=== PATIENT | male | born 1955 | race Caucasian/White ===

== ENCOUNTER 2017-01-22 16:18 | Emergency (ER) | payer OTHER ==
[~2017-01-22] VITALS: Ht 175.3 cm; Wt 82.6 kg
--- NOTE | ~2017-01-22 | EKG ---
[address] [address] ELECTROCARDIOGRAM REPORT Name: CHAD ROBBINS [id number] Admission: 01/22/17 Attend Phys: Discharge: 01/22/17 Date of : 59 Report #: [id number] THIS REPORT FOR: //name// [facility] ED Test Date: 2017-01-22 Test Time: 16:26:56 Pat Name: CHAD ROBBINS Department: Room: Gender: M Dispatcher Radio: MZOOK : 1955 Requested By: Annalisa Acuna Order Number: [id number] MD: Ayaan Costello Measurements Intervals [place] Rate: 80 P: 58 MT: 172 QRS: -41 QRSD: 159 T: 77 QT: 458 QTc: 529 Interpretive Statements Sinus rhythm Left bundle branch block No previous ECG available for comparison Electronically Signed On 01-24-2017 13:21:30 CDT by Ayaan Costello [email or web address] <ELECTRONICALLY SIGNED> By: Ayaan Costello MD 01/24/17 1321 1626 1626 Ayaan Costello MD /TIARA
[~2017-01-22 16:18] MED LIST: ACETAMINOPHEN-1 EAC1 PO; ACETAMINOPHEN325 M1 PO; ADULT LOW DOSE81 MG PO; ALTACE5 M1 PO; ASPIR 8181 MG PO; ASPIRIN81 M2 PO; ATORVASTATIN CA40 MG PO; CEFTIN500 MG PO; CLEOCIN HCL300 MG PO; DICLOFENAC SODI75 M1 PO; EFFIENT10 MG PO; GLUCOPHAGE500 MG PO; HYDROCODONE-APA1 TA1 PO; LANTUS SUBQ; LEVEMIR SUBQ; LISINOPRIL20 MG PO; NEURONTIN 300300 M1 PO; NOVOLOG100 UNIT/1 SUBQ; SIMVASTATIN40 MG PO; TOPROL XL100 MG PO; TOPROL XL25 MG PO; TOPROL XL50 MG PO; VOLTAREN75 MG PO
[2017-01-22 17:23] LABS: BASOPHILS 0.5 % (0.0-2.0); EOSINOPHILS 0.7 % (0.0-3.0); HEMATOCRIT 40.4 % (42.0-52.0); HEMOGLOBIN 13.7 gm/dL (14.0-18.0); LYMPHOCYTES 33.6 % (24.0-44.0); MCH 27.8 pg (26.0-34.0); MCHC 33.9 g/dL (28.0-37.0); MCV 82.1 fL (80.0-100.0); MONOCYTES 6.1 % (1.0-8.0); PLATELET COUNT 192 thou/uL (150-400); POLYS 59.1 % (36.0-66.0); RBC 4.92 mil/uL (4.50-6.00); RDW 14.1 % (10.5-14.5)
[2017-01-22 17:28] LABS: MANUAL DIFF NO
[2017-01-22 17:31] LABS: ANION GAP 8 mmol/L (7-16); BUN 18 mg/dL (7-18); CALCIUM 9.4 mg/dL (8.5-10.1); CHLORIDE 102 mmol/L (98-107); CO2 27 mmol/L (21-32); CREATININE 1.3 mg/dL (0.6-1.3); GLUCOSE 435 mg/dL (70-99); POTASSIUM 4.7 mmol/L (3.5-5.1); SODIUM 137 mmol/L (136-145)
[2017-01-22 17:38] LABS: INR 1.1; PROTIME 10.9 Seconds (9.3-11.4)
[2017-01-22 17:44] LABS: NT-PRO BRAIN NAT PEPTIDE 302 pg/mL (<300); TROPONIN-I < 0.04 ng/mL (<0.04-0.07)
== END 2017-01-22 20:15 | disposition home or self-care (01) ==
LOC: ER 16:18
PROVIDERS: Emergency Medicine
DX: R07.89 Other chest pain (principal); F10.99 Alcohol use, unspecified with unspecified alcohol-induced disorder; I10 Essential (primary) hypertension; E11.9 Type 2 diabetes mellitus without complications; E78.00 Pure hypercholesterolemia, unspecified; Z79.4 Long term (current) use of insulin; Z88.0 Allergy status to penicillin; Z95.5 Presence of coronary angioplasty implant and graft; Z86.73 Personal history of transient ischemic attack (TIA), and cerebral infarction without residual deficits

== ENCOUNTER 2017-01-24 06:27 | Inpatient (IN) | payer OTHER ==
[2017-01-21 11:22] LABS: HEMATOCRIT 41.5 % (42.0-52.0); HEMOGLOBIN 14.3 gm/dL (14.0-18.0); MCHC 34.5 g/dL (28.0-37.0); MCV 81.1 fL (80.0-100.0); RBC 5.11 mil/uL (4.50-6.00)
[2017-01-21 11:26] LABS: URINE BILIRUBIN NEGATIVE (Negative); URINE BLOOD NEGATIVE (Negative); URINE COLOR YELLOW; URINE GLUCOSE-RANDOM* 3+ (Negative); URINE KETONES 1+ (Negative); URINE LEUKOCYTES-REFLEX NEGATIVE (Negative); URINE PROTEIN (DIPSTICK) NEGATIVE (Negative); URINE UROBILINOGEN 0.2 E.U./dl (0.2-1.0)
[2017-01-21 11:29] LABS: CALCIUM 9.5 mg/dL (8.5-10.1); CREATININE 1.4 mg/dL (0.6-1.3); POTASSIUM 4.2 mmol/L (3.5-5.1)
[2017-01-21 11:41] LABS: APTT 25.7 Seconds (24.5-32.8); INR 1.1; PROTIME 11.1 Seconds (9.3-11.4)
[~2017-01-24] VITALS: Ht 175.3 cm; Wt 89.5 kg
--- NOTE | ~2017-01-24 | EKG ---
[address] [address] ELECTROCARDIOGRAM REPORT Name: CHAD ROBBINS Room #: [facility]#: [id number] Admission: Attend Phys: Haris Graham MD Discharge: Date of : 59 Report #: [id number] THIS REPORT FOR: //name// [facility] Test Date: 2017-01-21 Test Time: 10:42:41 Pat Name: CHAD ROBBINS Department: Room: Gender: Consultant: Fernando CABA : 1955 Requested By: Haris Graham Order Number: [id number] MD: Ayaan Costello Measurements Intervals [place] Rate: 77 P: 51 NV: 174 QRS: -35 QRSD: 162 T: 87 QT: 460 QTc: 521 Interpretive Statements Sinus rhythm Probable left atrial enlargement Left bundle branch block No previous ECG available for comparison Electronically Signed On 01-24-2017 12:56:53 CDT by Ayaan Costello [email or web address] <ELECTRONICALLY SIGNED> By: Ayaan Costello MD 01/24/17 1256 2 41 Ayaan Costello MD /TIARA
--- NOTE | ~2017-01-24 | EKG ---
[address] [place] [address] ELECTROCARDIOGRAM REPORT Name: GAYSKIPCHAD Room #: 213- ADM IN M.R.#: [id number] Admission: 02/07/17 Attend Phys: Haris Graham MD Discharge: Date of : 59 Report #: [id number] THIS REPORT FOR: //name// [facility] Test Date: 2017-02-15 Test Time: 08:19:14 Pat Name: CHAD ROBBINS Department: Room: 213 Gender: M Shelter Case Manager: james : 1955 Requested By: Raudel Doherty Order Number: [id number] MD: Josue Christian Measurements Intervals [place] Rate: 75 P: 39 VT: 167 QRS: -14 QRSD: 134 T: 139 QT: 439 QTc: 491 Interpretive Statements Sinus rhythm Left bundle branch block Compared to ECG 02/08/2017 07:33:26 No significant changes Electronically Signed On 02-16-2017 15:00:57 CDT by Josue Christian [email or web address] <ELECTRONICALLY SIGNED> By: Josue Christian MD, [facility] 02/16/17 1500 8 8 Josue Christian MD, [facility] /EPI
--- NOTE | ~2017-01-24 | HC ---
[facility] [place] [address] CONSULTATION Name: CHAD ROBBINS Room #: 242-P [facility] IN M.R.#: [id number] Admission: 02/07/17 Attend Phys: Haris Graham MD Discharge: Date of : 59 Report #: [id number] THIS REPORT FOR: //name// CC: Haris Blood DATE OF SERVICE: 02/09/2017 Critical care renal consult dated 02/09/2017. IDENTIFICATION: This Intensive Care Unit patient is seen post coronary artery bypass surgery and aortic valve replacement in a critical state in the Intensive Care Unit. HISTORY OF PRESENT ILLNESS: This 61-year-old male has known ischemic cardiomyopathy, status post remote percutaneous intervention and prior AICD for cardiac arrest. He underwent an electively aortic valve replacement with a bioprosthetic aortic valve and a 2-vessel coronary artery bypass surgery on 02/07/2017. He initially did well intraoperatively and was successfully extubated; however, he subsequently developed respiratory distress and a code was called. He was reintubated and is seen in the Intensive Care Unit on dopamine infusion with oligo-anuria. His potassium is rising and his creatinine is rising as well. PAST MEDICAL HISTORY: Remarkable for myocardial infarction in 12/2012 with out of hospital cardiac arrest at that time. He underwent PCI with a drug eluting stent at that time. He has known diabetes mellitus, dyslipidemia, and hypertension. MEDICATIONS ON ADMISSION: Include Humalog, metoprolol, famotidine, atorvastatin, aspirin, amiodarone. PERSONAL AND SOCIAL HISTORY: The patient is and lives with his . He does not smoke or consume alcohol. There is no history of substance abuse. FAMILY HISTORY AND REVIEW OF SYSTEMS: Not obtainable from this intubated patient. PHYSICAL EXAMINATION: GENERAL: Reveals a well-developed, well-nourished male appearing his stated age, in no acute distress. VITAL SIGNS: Blood pressure 129/56, pulse 87, temperature 98.1. SKIN: Warm and dry. There is no gross clubbing, cyanosis, edema or adenopathy. HEENT: The head is normocephalic and atraumatic. There is an endotracheal tube in place. There are several neck lines in place. The patient is responsive. His eyes track appropriately. He seems to understand simple commands. [facility] [address] [place] [address] CONSULTATION Name: CHAD ROBBINS Room #: 242-P [facility] IN M.R.#: [id number] Admission: 02/07/17 Attend Phys: Haris Graham MD Discharge: Date of : 59 Report #: [id number] EXTREMITIES: Warm and well perfused at this time. NECK: Supple. LUNGS: Rivera reveal scattered rhonchi bilaterally. CARDIOVASCULAR: Reveals a regular rate and rhythm without rub. ABDOMEN: Soft and nontender. There are chest tubes in place. NEUROLOGIC: Reveals the patient to be responsive and tracking. He is moving all extremities symmetrically without evidence of focal neurologic deficit. LABORATORY STUDIES: Available at the time of consultation include sodium 140, potassium 6.5, chloride 106, CO2 14, BUN 43, creatinine 3.6, glucose 334, calcium 7.4, magnesium 2.2, albumin 3.4. White blood cell count 13,900, hemoglobin 9.2, hematocrit 27.1, platelet count 109,000. Urinalysis reveals clear yellow urine, specific gravity 1.025, pH 5, 1+ protein, 1+ glucose, 3+ blood. ASSESSMENT: 1. Acute kidney injury following cardiac arrest and reintubation following prior coronary artery bypass surgery and aortic valve repair. The patient is relatively hemodynamically stable at this time and the exact details of his episode of the night prior to consultation are not well described. He has been treated emergently for hyperkalemia and repeat laboratory studies are pending at this time. He has clearly sustained a significant renal insult and may well require renal replacement therapy. I have discussed his current medical situation with his including his possible need for dialysis/CRRT therapy. We will follow serial laboratory studies, I and O and daily weights. 2. Status post coronary artery bypass surgery with aortic valve repair. 3. Diabetes mellitus, presently poorly controlled, will institute insulin drip. 4. Metabolic acidosis. 5. History of sudden with automatic implantable cardioverter defibrillator in place. PLAN: We will follow serial laboratory studies, I and O and daily weights. I will keep the patient's informed of his progress. Please see orders. Critical care time 45 minutes. <ELECTRONICALLY SIGNED> By: Dano Briones MD 02/11/17 1721 0550 1053 Dano Briones MD /nt
--- NOTE | ~2017-01-24 | HC ---
[facility] [place] [address] CONSULTATION Name: CHAD ROBBINS Room #: 242-P ADM IN M.R.#: [id number] Admission: 02/07/17 Attend Phys: Haris Graham MD Discharge: Date of : 59 Report #: [id number] THIS REPORT FOR: //name// CC: Haris Blood [facility] REQUESTING PHYSICIAN: Haris Graham M.D. REASON FOR CONSULTATION: Medical management post-CABG. HISTORY OF PRESENT ILLNESS: The patient is a 61-year-old with extensive past medical history including and not limited to cardiac arrest, status post AICD. He is known to have diabetes mellitus, hypertension and chronic kidney disease. All of his medical problems are related to his diabetes mellitus and hypertension. He had an arrest with cardioversion back in 2012 and underwent cardiac catheterizations with an implantable defibrillator. He was operated on yesterday by Dr. Graham and had what was described as aortic valve replacement with CABG times 2. I was asked to manage his medical issues postoperatively. He was evaluated in the intensive care unit this morning and has chest discomfort, as expected related to his surgery. PAST MEDICAL HISTORY: 1. Diabetes mellitus. 2. Hypertension. 3. Status post cardiac arrest. 4. Coronary artery disease. PAST SURGICAL HISTORY: 1. AICD. 2. Arthroscopic knee surgery. ALLERGIES: PENICILLIN and SULFA. FAMILY HISTORY: His mother had coronary artery disease, status post CABG. SOCIAL HISTORY: No drug or alcohol abuse. He used to work for [employer]. HOME MEDICATIONS: 1. Atorvastatin. 2. Metoprolol. 3. Aspirin. 4. Insulin. REVIEW OF SYSTEMS: [facility] [address] [place] [address] CONSULTATION Name: CHAD ROBBINS Room #: 242-P [facility] IN .R.#: [id number] Admission: 02/07/17 Attend Phys: Haris Graham MD Discharge: Date of : 59 Report #: [id number] GENERAL: No fever or chills. CARDIOVASCULAR: As expected, chest pain and shortness of breath. PULMONARY: Shortness of breath. No hemoptysis. GASTROINTESTINAL: No nausea or vomiting. GENITOURINARY: No frequency, no urgency. PHYSICAL EXAMINATION: GENERAL: The patient is alert and oriented. VITAL SIGNS: Blood pressure is 127/57, pulse rate is 82 and temperature is 37. HEAD AND NECK: Right IJ Cordis line. CHEST: Decreased air entry bilaterally with chest tubes. CARDIOVASCULAR: No rub detected. ABDOMEN: Soft, nontender. LOWER EXTREMITIES: No edema. LABORATORY DATA: Laboratory values reviewed. Creatinine is 1.6. Blood sugar is mildly elevated. As expected, white blood cell count is mildly elevated. INR is 1.4. CHEST X-RAY: Reviewed with postoperative changes. ASSESSMENT, IMPRESSION AND PLAN: 1. Status post coronary artery bypass graft. 2. Hypertension. 3. Diabetes mellitus. 4. Chronic kidney disease. 5. Status post cardiac arrest in 2013 with automated implantable cardioverter defibrillator. 6. He seems to be making very good progress postoperatively. 7. He is currently maintained on appropriate post-cardiac surgical medications, including Cardene, insulin drip. 8. Blood pressure seems to be under well control. 9. He is making appropriate amount of urine. His creatinine is slightly rising; however, looking back, he does have chronic kidney disease with a baseline creatinine of anywhere from 1.4 to 1.6. 10. Continue routine post-surgical care. 11. We will discuss with the surgical team when to titrate off the IV drips. 12. Repeat labs and x-rays in the morning. 13. Once able to take p.o., we will resume his atorvastatin. He will also need to be on his full cardiac medications including metoprolol and aspirin. <ELECTRONICALLY SIGNED> By: Rae Moore MD 02/12/17 0904 0655 1216 Rae Moore MD /nt
--- NOTE | ~2017-01-24 | EKG ---
[address] [place] [address] ELECTROCARDIOGRAM REPORT Name: ROSENDOCHAD Room #: 242-P ADM IN M.R.#: [id number] Admission: 02/07/17 Attend Phys: Haris Graham MD Discharge: Date of : 59 Report #: [id number] THIS REPORT FOR: //name// [facility] Test Date: 2017-02-07 Test Time: 18:27:03 Pat Name: CHAD ROBBINS Department: Room: [facility] Gender: M Public Service Officer: Tita KWON : 1955 Requested By: Dannie Hunter Order Number: [id number] MD: Abundio Lamb Measurements Intervals [place] Rate: 102 P: 60 WV: 148 QRS: -51 QRSD: 149 T: 150 QT: 401 QTc: 523 Interpretive Statements Sinus tachycardia Left bundle branch block Compared to ECG 01/22/2017 16:26:56 Sinus rhythm no longer present Electronically Signed On 02-08-2017 11:04:44 CDT by Abundio Lamb [email or web address] <ELECTRONICALLY SIGNED> By: Abundio Lamb MD 02/08/17 1104 26 26 Abundio Lamb MD /TIARA
--- NOTE | ~2017-01-24 | EKG ---
[address] [place] [address] ELECTROCARDIOGRAM REPORT Name: ROSENDOCHAD E Room #: 242- ADM IN M.R.#: [id number] Admission: 02/07/17 Attend Phys: Haris Graham MD Discharge: Date of : 59 Report #: [id number] THIS REPORT FOR: //name// [facility] Test Date: 2017-02-08 Test Time: 07:33:26 Pat Name: CHAD ROBBINS Department: Room: 242 Gender: M Airline Manager: james : 1955 Requested By: Dannie Hunter Order Number: [id number] MD: Abundio Lamb Measurements Intervals [place] Rate: 67 P: 42 MS: 186 QRS: -17 QRSD: 153 T: 123 QT: 536 QTc: 566 Interpretive Statements Sinus rhythm Left bundle branch block Compared to ECG 01/22/2017 16:26:56 No significant changes Electronically Signed On 02-08-2017 11:05:51 CDT by Abundio Lamb [email or web address] <ELECTRONICALLY SIGNED> By: Abundio Lamb MD 02/08/17 1105 0733 2 MD SAMANTA Ochoa
--- NOTE | ~2017-01-24 | 2DMMODE ---
[facility] [place] [address] 2 D/M-MODE ECHOCARDIOGRAM Name: CHAD ROBBINS Room #: 242-P ADM IN M.R.#: [id number] Admission: 02/07/17 Attend Phys: Haris Graham MD Discharge: Date of : 59 Date of Service: 02/12/17 1650 Report #: [id number] THIS REPORT FOR: //name// APPROVED REPORT Study performed: 02/12/2017 13:29:36 EXAM: Comprehensive 2D, Doppler, and color-flow Echocardiogram Patient Location: Bedside Room #: 242 Blood Pressure: 140/58 mmHg HR: 93 bpm Other Information Study Quality: Adequate Indications Aortic Valve Disease Diabetes Hypertension/HDD Aortic Valve AoV Peak Fermin.: 2.06 m/s AO Peak Gr.: 18.35 mmHg LV Max P.88 mmHg LV Max: 0.98 m/s Pulmonary Valve PV Peak Fermin.: 0.99 m/s PV Peak Gr.: 3.89 mmHg Left Ventricle The left ventricle is normal size. Mild concentric left ventricular hypertrophy. Left ventricular systolic function is hyperdynamic. LVEF is 65-70%. Diastolic function cannot be accurately assessed. Right Ventricle The right ventricle is normal size. The right ventricular systolic function is normal. ICD lead noted Atria The left atrium size is normal. The right atrium size is normal. [facility] [address] [place] [address] 2 D/M-MODE ECHOCARDIOGRAM Name: CHAD ROBBINS Room #: 242-P ADM IN M.R.#: [id number] Admission: 02/07/17 Attend Phys: Haris Graham MD Discharge: Date of : 59 Date of Service: 02/12/171649 Report #: [id number] Aortic Valve The aortic valve is not well visualized. There is a 21 mm Wolf-Brown bioprosthetic aortic valve prosthesis. The prosthetic aortic valve appears to have normal function Trace aortic regurgitation. Mitral Valve The mitral valve is normal in structure. Trace mitral regurgitation. No evidence of mitral valve stenosis. Tricuspid Valve The tricuspid valve is normal in structure. Trace tricuspid regurgitation. Pulmonic Valve Pulmonic valve is not well visualized. There is no pulmonic valvular regurgitation. Great Vessels The aortic root appears normal in size. The inferior vena cava is not well visualized. Pericardium There is no pericardial effusion. <Conclusion> Mild concentric left ventricular hypertrophy. LVEF is 65-70%. There is a 21 mm Wolf-Brown bioprosthetic aortic valve prosthesis. The prosthetic aortic valve appears to have normal function <ELECTRONICALLY SIGNED> By: Raudel Doherty MD, FACC 02/12/171649 49 1650 Raudel Doherty MD, FACC /INF
--- NOTE | ~2017-01-24 | O ---
[facility] [place] [address] OPERATIVE REPORT Name: CHAD ROBBINS Room #: 242-P ADM IN M.R.#: [id number] Admission: 02/07/17 Attend Phys: Haris Graham MD Discharge: Date of : 59 Report #: [id number] THIS REPORT FOR: //name// CC: Haris Blood DATE OF SERVICE: 02/07/2017 PREOPERATIVE DIAGNOSES: Aortic valve stenosis and coronary artery disease. POSTOPERATIVE DIAGNOSES: Aortic valve stenosis and coronary artery disease. OPERATION: Aortic valve replacement with 21 mm bioprosthesis and coronary artery bypass times 2 including saphenous vein to diagonal and marginal arteries and endoscopic harvest, left greater saphenous vein. SURGEON: Haris Graham MD PRINTING AGENT: Dale. ANESTHESIA: General. INDICATIONS: The patient is a 61-year-old with important aortic valve stenosis and coronary artery disease. Cardiac catheterization demonstrated a 70% first marginal lesion and a 50% ostial lesion in a bifurcating diagonal. Cardiac echo revealed aortic valve area estimated to be a 0.7 cm2 area, main gradient of 32 mmHg. The patient has history of sudden and has an implantable defibrillator. The patient continues to work manager multimedia. FINDINGS AND TECHNIQUE: After general anesthesia was established, saphenous vein was harvested using an endoscopic approach and prepared for use as a conduit. Exposure was obtained through median sternotomy. Pericardial well was made. Cannulation sutures were placed. Heparin was given. Aorta was cannulated. Right atrium was cannulated. Cardioplegia needle was positioned in the aortic root. Retrograde cardioplegic catheter was placed in the coronary sinus. Cardiopulmonary bypass was established. The aorta was cross clamped. Antegrade and retrograde cardioplegia were given. Ice was poured in the pericardial well. The heart was stopped. During electromechanical arrest, the distal anastomosis were performed and end-to-side anastomosis was made between vein and the marginal artery. This was an intramyocardial vessel that measured approximately 1.7 mm. Cold cardioplegia was given. Same segment of vein was sewn in [id number]-[id number] fashion to the diagonal artery. This was a 1.3 mm vessel. Cold cardioplegia was given. [facility] [address] [place] [address] OPERATIVE REPORT Name: CHAD ROBBINS Room #: 242-P [facility] IN M.R.#: [id number] Admission: 02/07/17 Attend Phys: Haris Graham MD Discharge: Date of : 59 Report #: [id number] aortotomy was made. The aortic valve was bicuspid and was highly calcified. Cardioplegia was given every 15 minutes through the retrograde cannula and down the vein graft and through the ostium of the right coronary. The cusp of the aortic valve leaflets were excised. The annulus was decalcified. The cavity of the ventricle was irrigated to remove any loose debris. Interrupted Ethibond sutures were placed sequentially through the [place] annulus and then through the sewing ring of a 21 mm. A Wolf-Brown bioprosthesis was chosen for patient an annulus size. The prosthesis was lowered into positions and sutures were secured with the Cor-Knot device. The valve appeared to sit nicely. The aortotomy was closed with Carel technique. One proximal anastomosis was performed. When this was complete, warm retrograde cardioplegia was given followed by warm continuous blood to the coronary sinus. When this infusion was complete, the crossclamp was removed. De-airing maneuvers were performed. The anastomoses were made satisfactory. When the patient was warm, he was weaned from cardiopulmonary bypass. Venous cannula was removed. Protamine was given. The aortic cannula was removed. Flows were measured in the bypass grafts. Flow was 36 mL per minute. Total cross clamp time was 190 minutes. Total bypass time was 225 minutes. When hemostasis was satisfactory, chest was irrigated with antibiotic solution and closed in the usual fashion. The patient was taken to the intensive care unit in good condition, having tolerated the procedure well. All counts reported as correct. <ELECTRONICALLY SIGNED> By: Haris Graham MD 02/10/17 1124 193 12 Haris Graham MD /nt
--- NOTE | ~2017-01-24 | HC ---
[facility] [place] [address] CONSULTATION Name: CHAD ROBBINS Room #: 213-P [facility] IN M.R.#: [id number] Admission: 02/07/17 Attend Phys: Haris Graham MD Discharge: 02/19/17 Date of : 59 Report #: [id number] THIS REPORT FOR: //name// CC: Haris Blood DATE OF SERVICE: 02/09/2017 REFERRING PROVIDER: Haris Graham MD REASON FOR CONSULTATION: Respiratory failure. Our group was asked to see the patient in consultation while hospitalized at [facility] and seen in the ICU. Apparently he had an event yesterday evening and required intubation due to poor neurologic status, recently undergone aortic valve replacement and coronary artery bypass grafting, became less responsive overnight and required urgent intubation. The patient had been hypertensive and lethargic at that time with some bradycardia. Now is awake and alert, no distress, on mechanical ventilatory support; however, the patient in acute renal failure with plans for hemodialysis noted due to some hyperkalemia as noted as well as acute renal failure, currently answering yes/no questions, in no distress. ALLERGIES: PENICILLIN. PAST MEDICAL HISTORY: 1. Coronary artery bypass grafting and aortic valve replacement. 2. History of coronary artery disease. 3. Hypertension. 4. Hyperlipidemia. 5. Diabetes mellitus type 2. SOCIAL HISTORY: Nonsmoker and nondrinker. FAMILY HISTORY: Unobtainable due to current status. REVIEW OF SYSTEMS: Unobtainable due to current status. PHYSICAL EXAMINATION: VITAL SIGNS: Afebrile, pulse 80, respiratory rate 20, blood pressure 129/56, oxygen saturation 98%. GENERAL: This is a pleasant middle-aged male on vent, in no distress, awake, following commands. ENT: Endotracheal tube in place. LUNGS: Essentially clear. CARDIOVASCULAR: Heart regular. No murmurs or gallops. Chest wound is dressed. [facility] [address] [place] [address] CONSULTATION Name: CHAD ROBBINS Room #: 213-P [facility].#: [id number] Admission: 02/07/17 Attend Phys: Haris Graham MD Discharge: 02/19/17 Date of : 59 Report #: [id number] ABDOMEN: Soft, nontender, no masses. EXTREMITIES: Only trace edema. LABORATORY DATA: Chest x-ray revealed endotracheal tube in good position, small right pleural effusion appreciated. White blood cell count 14,000, hemoglobin 9, hematocrit 27, platelet count 109. Sodium 140, potassium 4.6, chloride 106, bicarbonate 20, BUN 52, creatinine 4.0, glucose 345. Arterial blood gas on assist control, tidal volume of 600, ____ FiO2 of 40% reveals pH 7.42, pCO2 of 28, pO2 of 80, bicarbonate 18. IMPRESSION: 1. Acute respiratory failure, likely due to severe acidosis due to renal failure. 2. Acute renal failure. 3. Hyperglycemia. 4. Status post coronary artery bypass grafting and aortic valve replacement. 5. Hyperkalemia. 6. Lactic acidosis, resolving, unclear etiology. SUGGESTIONS: 1. Dialysis per Nephrology. 2. No ventilator weaning today due to severe acidosis, await until acid base improves and attempt to remove mechanical ventilatory support. 3. Consider cultures. 4. Bronchodilators. 5. Additional recommendations to follow. Thank you for requesting our suggestions. <ELECTRONICALLY SIGNED> By: Thierry Hernandez MD 03/03/17 1253 1249 2030 Thierry Hernandez MD /nt
--- NOTE | ~2017-01-24 | HC ---
[facility] [place] [address] CONSULTATION Name: CHAD ROBBINS Room #: 213-P [facility] IN M.R.#: [id number] Admission: 02/07/17 Attend Phys: Haris Graham MD Discharge: 02/19/17 Date of : 59 Report #: [id number] THIS REPORT FOR: //name// CC: Raudel Doherty MD [facility] Vince Briones MD REQUESTING PHYSICIAN: Haris Graham M.D. 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 HISTORY OF PRESENT ILLNESS: The patient is a very pleasant 61-year-old gentleman with ischemic cardiomyopathy, who evidently had come in for a bioprosthetic valve procedure on aortic valve and also 2-vessel bypass surgery on 02/07/2017. He did receive heparin about 1-2 days postoperatively. He had an hypotensive episode and was resuscitated and is recovering. His platelet count back in December was 213,000. On the date of surgery, it was 173,000 and the day after, on 02/09, it was 109,000; marianne on February 14 at 90,000; on the , it was 130,000 and yesterday, on the , it was 215,000. Note that his optical density HIT antibody test drawn on 02/10/2017 was intermediate positive at 0.54. During the same time, it was also noted that his liver functions on the , his AST was 6483, now dropped to 311 on the . ALT was 2015 on the and it dropped to 804. Total bilirubin normal. The patient will receive the heparin on 02/07/2017. Discussed with patient and his and I also briefly talk with pharmacist and CTS that given the intermediate positive HIT antibody and a 4T score that is intermediate to high, I would think the patient would be at a higher risk for future clots in the next 2-3 months because of the HIT antibody present. If, on the other hand, the serotonin release test assay, which is confirmatory, comes back negative, then we can stop the anticoagulation, except that may be preferred to continue by cardiothoracic surgery given the bioprosthetic heart valve replacement. If the test is positive, then the patient should continue on Arixtra and then transitioned to Coumadin with a target INR for 2-3 months. The patient and his are aware that there could be some bleeding risk with this, but most people feel that the clot risk is higher and they would initiate anticoagulation. Note that his renal function was worse and it is now getting back to baseline. I talked to the pharmacist and they think this dose should be appropriate. PAST MEDICAL HISTORY: Past history is notable for the history of MT in 12/2012, the bioprosthetic aortic valve replacement with 2-vessel bypass on 02/07/2017. Evidently, he also has a pacemaker with a defibrillation for an xha-iq-ezbhiqan cardiac arrest in the past. Also has had drug-eluting stents placed. Also, [facility] [address] [place] [address] CONSULTATION Name: CHAD ROBBINS Room #: 213-P DIS IN Tita.Perez.#: [id number] Admission: 02/07/17 Attend Phys: Haris Graham MD Discharge: 02/19/17 Date of : 59 Report #: [id number] history of diabetes mellitus, lipid abnormalities, hypertension, also history of right knee surgery and also carpal tunnel surgery in the past. 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 In the past, he had worked in [employer], retired. He is originally from [place], I think he said, though he would spend time in [place] also. FAMILY HISTORY: Father had colon cancer and advanced age, but later from lymphoma. Mother had some heart issues. Has, I think, a brother with diabetes. I think he said he has 3 children, who are alive and well. The patient is nonsmoker, nondrinker. No street drugs. HEALTH MAINTENANCE. The patient gets a colonoscopy about every [address] Barkley. ALLERGIES: Would now consider allergy to HEPARIN. Other allergies, which I believe, he has had troubles with PENICILLIN, not sure what type but is intolerant with CEPHALOSPORINS. CURRENT MEDICATIONS: Include warfarin 5 mg daily, which I just added; Arixtra 7.5 mg daily subq, which I just added; p.r.n. Tylenol; insulin 35 units daily, of the detemir subtype; OxyIR 5 mg p.r.n.; amiodarone 200 mg daily; metoprolol 50 at bedtime; docusate 100 b.i.d.; Xanax 0.5 q. 8h. p.r.n.; melatonin 5 mg at bedtime; Benadryl p.r.n.; insulin on a sliding scale; MiraLax 17 grams daily; atorvastatin calcium 40 mg daily at night; insulin 10 units before meals; famotidine 10 mg b.i.d.; aspirin 81 mg daily; ipratropium and albuterol q.2h. inhalation therapies p.r.n. for Zofran. He has also received a dose of cefepime, which I think may be continued. Furosemide has been discontinued. Radiologically, the patient also had imaging earlier including ultrasound of the legs that did not reveal clots. Other lab tests notable for recent BUN of 18, creatinine of 1.4 with an EGFR currently of 52. Coags baseline had been normal. Fibrinogen had been normal. White blood count today 8.5, hemoglobin 10 and platelets 215,000. The serotonin release assay is pending. Heparin antibody optical density was intermediate positive at 0.540. TSH 0.4, folate 42, vitamin B12 at 4718. Vitamin D-125 hydroxy was 22.6. U/A had a few red cells. PHYSICAL EXAMINATION: GENERAL: The patient appears his stated age. He is postop, has dressing on his front chest. VITAL SIGNS: Height is 5 feet 9, 175.3 cm. Weight is 89.5 kilograms or 197 pounds. Blood pressure is 155/82, respirations 18, O2 sat 97, pulse 77 and afebrile at 98.1. MOOD: The patient is alert and pleasant and conversant. NEUROLOGIC: Face is symmetrical, moving all extremities. HEENT: Oropharynx clear. [facility] [address] [place] [address] CONSULTATION Name: PETE ROBBINSVioleta Brito Room #: 213-P [facility] IN M.R.#: [id number] Admission: 02/07/17 Attend Phys: Haris Graham MD Discharge: 02/19/17 Date of : 59 Report #: [id number] LUNGS: Have symmetric anterior respirations, without wheezes or rales. HEART: Regular rate. LYMPHATIC: No enlarged lymph nodes in the supraclavicular, cervical or inguinal region. ABDOMEN: Slightly obese, nontender. No masses. EXTREMITIES: Without significant clubbing or cyanosis. There is trace edema. ASSESSMENT AND PLAN: 1. Discussed with patient and his that he had a HIT positive antibody by the optical density measurements that is intermediate probability. His 4T score is also intermediate to high. As such, I think he is at a significant risk for development of DVT over the next 2-3 months without prophylactic anticoagulation. I would suggest he receive this. Talked and I have initiated Arixtra 7.5 mg daily. Also, begin Coumadin 5 mg daily. Target INR of 2-3. The patient should have overlap at a target INR of greater than 2 for at least 5 days before stopping the Arixtra. Most likely, the INR will be followed by the patient's notary public. Await serotonin release assay. If positive, we would definitely continue anticoagulation for 2-3 months. If negative, we would not need to continue the anticoagulation from a HIT antibody, but with the bioprosthetic valve, Dr. Graham has stated he would prefer the patient stays on the Coumadin for 2-3 months for that reason. So, the patient is probably going to be on Coumadin for at least 2-3 months. 2. Mild anemia, related to recent postop. We will defer to others. 3. Diabetes. Continue insulin and dietary changes. 4. Cholesterol. Continue those meds. 5. Coronary artery disease, status post bypass surgery. Continues aspirin. 6. Cardiac arrhythmias, amiodarone. Note that if this dose is adjusted that may change Coumadin dose. 7. Family history of colon cancer. The patient is already getting colonoscopies on a regular basis. Follow up will be available if the patient has questions, but we will defer additional management to Dr. Doherty and Dr. Graham and his other physicians. <ELECTRONICALLY SIGNED> By: Jaya Redding MD 02/21/17 0716 0925 1322 Jaya Redding MD /nt
--- NOTE | ~2017-01-24 | CNG ---
[facility] [place] [address] CYTO-NONGYN REPORT PROCEDURE Name: CHAD WILKERSON Room #: 213-P ADM IN M.R.#: [id number] Admission: 02/07/17 Date of : 59 Discharge: Report #: [id number] Path Case #: [id number] CYTOPATHOLOGY REPORT COLLECTION DATE: 02/14/2017 RECEIVED DATE: 02/17/2017 SUBMITTING PHYS: Dr. Haris Graham OTHER PHYS: Edson Blood MD CLINICAL HISTORY: Aortic valve replacement. SPECIMEN(S) RECEIVED: A.Pleural fluid, Right * * * * * * * * * * * * FINAL DIAGNOSIS: Right pleural fluid: - No malignant epithelial cells present. - Reactive mesothelial cells and inflammation. COMMENT: Immunohistochemical stains are performed. (Cell block) CD68: reactive within the macrophages and the enlarged cells scattered throughout Calretinin: reactive within the mesothelial cells Desmin: reactive within the mesothelial cells Ron-EP4: non-reactive Co-review: Dr. Keyona Selby (IUV:mgr; d/t: 02/19/17) PATHOLOGIST: Bushra Law M.D. REPORT ELECTRONICALLY SIGNED BY: Bushra Law M.D. DATE/TIME: 02/19/2017 14:03 * * * * * * * * * * * * GROSS PATHOLOGY: A. Pleural fluid, Right: The specimen is submitted unfixed, labeled "Chad Wilkerson". Received by the Cytology Department is 20 mL of cloudy red fluid. One ThinPrep slide and a cell block were prepared. (clt 02.17.2017) STEAM HAND(S): KIRSTEN Ring(ASCP) INITIAL CPT CODE(S): A; 78953, 48217, 32713, 25322, 54825, 93247 [facility] [address] [place] [address] CYTO-NONGYN REPORT PROCEDURE Name: CHAD WILKERSON Alisha Room #: 213-P [facility] IN M.R.#: [id number] Admission: 02/07/17 Date of : 59 Discharge: Report #: [id number] Path Case #: [id number] [address], [place] [address] Technical [facility] performed [facility] at [address] [place] [address], [address], [place] [address]. [address], [address] [place] [address] PHONE: [phone] DIRECTOR: Phill Betts M.D. * * * END OF REPORT * * *
--- NOTE | ~2017-01-24 | S ---
[facility] [place] [address] SURGICAL PATH RPT PROCEDURE Name: CHAD WILKERSON Room #: 242-P ADM IN M.R.#: [id number] Admission: 02/07/17 Date of : 59 Discharge: Report #: [id number] Path Case #: [id number] PATHOLOGY REPORT COLLECTION DATE: 02/07/2017 RECEIVED DATE: 02/07/2017 SUBMITTING PHYS: Dr. Haris Graham OTHER PHYS: Edson Blood MD SPECIMEN(S) RECEIVED: A.Aortic valve * * * * * * * * * * * * FINAL DIAGNOSIS: Aortic valve, "aortic valve": - Calcified aortic valve with myxoid degeneration. ([facility]:mgr; d/t: 02/11/17) PATHOLOGIST: Ricardo Mcbride M.D. REPORT ELECTRONICALLY SIGNED BY: Ricardo Mcbride M.D. DATE/TIME: 02/11/2017 14:23 * * * * * * * * * * * * GROSS PATHOLOGY: The specimen is received in formalin labeled "Chad Wilkerson, aortic valve". Received are multiple segments of white-lane rubbery tissue with multiple foci calcifications measuring 3.8 x 3.3 x 0.7 cm in aggregate dimensions. The specimen is submitted representatively in cassette A1, following light decalcification. (CAA; 02/10/2017) CLINICAL HISTORY: Aortic stenosis, coronary artery disease INITIAL CPT CODE(S): A; 72230, 86553 Professional services performed by [facility] at [facility] [address] [place] [address] Technical services performed by [facility] at [address] [place] [address]. [facility] [address] [place] [address] SURGICAL PATH RPT PROCEDURE Name: CHAD WILKERSON Room #: 242-P ADM IN M.R.#: [id number] Admission: 02/07/17 Date of : 59 Discharge: Report #: [id number] Path Case #: [id number] [facility] [address] [address] PHONE: [phone] DIRECTOR: Phill Betts M.D. * * * END OF REPORT * * *
--- NOTE | ~2017-01-24 | HC ---
[facility] [place] [address] CONSULTATION Name: CHAD ROBBINS Room #: 213-P [facility] IN M.R.#: [id number] Admission: 02/07/17 Attend Phys: Haris Graham MD Discharge: 02/19/17 Date of : 59 Report #: [id number] THIS REPORT FOR: //name// CC: Haris Blood DATE OF SERVICE: 02/07/2017 REQUESTING PHYSICIAN: Haris Graham MD PRIMARY LEAD NETWORK ARCHITECT: Raudel Doherty MD HISTORY OF PRESENT ILLNESS: The patient is a 57-year-old man with a history of an ischemic cardiomyopathy, status post remote PCI and prior ICD for cardiac arrest, underwent elective aortic valve replacement with a 21 mm Wolf-Brown bioprosthesis and 2-vessel CABG, vein graft to diagonal marginal. He is presently postoperative, extubated and alert, oriented. His pain is well controlled. He is in a sinus rhythm and has no complaints of chest pain or shortness of breath. He was hypertensive and presently is on IV Cardene drip. However, he is starting to take p.o. medications. PAST MEDICAL HISTORY: Significant for acute presentation for acute myocardial infarction in 12/2012 with out of hospital arrest, he had a severe stenosis at the circumflex coronary artery, status post PCI with a drug-eluting stent. He has hypertension, hyperlipidemia, diabetes mellitus, insulin requiring. He has a [employer] defibrillator, he has left bundle branch block. MEDICATIONS: Present medications include Humalog insulin, metoprolol 12.5 mg p.o. b.i.d., famotidine 20 mg p.o. b.i.d., atorvastatin 40 mg daily, baby aspirin. He is on amiodarone protocol 450 mg via IV drip. SOCIAL HISTORY: He is a nonsmoker. No significant ethanol intake. He is . REVIEW OF SYSTEMS: GASTROINTESTINAL: No abdominal pain. No dysphagia. GENITOURINARY: No dysuria. He has Aguilar catheter with no evidence of bleeding. NEUROLOGIC: Denies slurred speech, extremity numbness or weakness. SKIN: No edema. HEME: No anemia. RENAL: Mild renal insufficiency, creatinine 1.6. NEUROLOGIC: Denies slurred speech, extremity numbness. CARDIOVASCULAR: Positive chest wall pain. No shortness of breath, no orthopnea, no PND. No defibrillator shocks. [address] [address] CONSULTATION Name: CHAD ROBBINS Room #: 213-P [facility] IN .R.#: [id number] Admission: 02/07/17 Attend Phys: Haris Graham MD Discharge: 02/19/17 Date of : 59 Report #: [id number] PHYSICAL EXAMINATION: VITAL SIGNS: Blood pressure is 165/99 in a sinus rhythm with sats 95% on O2 per nasal cannula. GENERAL: This is a pleasant middle-aged male who is alert, oriented, no apparent distress. HEENT: EOMs intact. No facial asymmetry. NECK: Supple. No jugular venous distention. CARDIOVASCULAR: Regular. I cannot hear a murmur. LUNGS: Clear to auscultation. ABDOMEN: Nontender. EXTREMITIES: There is no peripheral edema. NEUROLOGIC: No focal deficits. Chest x-ray this morning reveals right basal infiltrate infusion, mild edema. LABORATORY DATA: Hemoglobin is 10.7, white blood cell count is 12.6, platelet count is 173,000. Sodium is 139, potassium is 3.8, chloride is 105, BUN is 18, creatinine is 1.6, glucose is 248. IMPRESSION: 1. Aortic stenosis, status post aortic valve replacement with a bioprosthetic device. He is doing well postoperative day #1. He has been extubated already and we will continue with routine postoperative management including amiodarone for atrial fibrillation prophylaxis. 2. Coronary artery disease, status post 2-vessel CABG. He will continue with aspirin. He is on beta jarocho therapy. 3. Malignant hypertension. We will increase his oral therapies and wean off of the IV Cardene. 4. Status post ICD, his device was disabled for his surgery and we will have it reinterrogated and programmed postoperatively. 5. Diabetes mellitus. He will continue with insulin and sliding scale protocols. 6. Renal insufficiency, he has mild likely azotemia, we will need to monitor renal function closely, given his history of diabetes mellitus. His preoperative creatinine was 1.3 as he does likely have some underlying disease. <ELECTRONICALLY SIGNED> By: José Manuel Galvan MD, FACC 03/07/17 0849 0940 1223 José Manuel Galvan MD, FACC /nt
--- NOTE | ~2017-01-24 | CNG ---
[facility] [place] [address] CYTO-NONGYN REPORT PROCEDURE Name: CHAD WILKERSON Room #: 213-P ADM IN M.R.#: [id number] Admission: 02/07/17 Date of : 59 Discharge: Report #: [id number] Path Case #: [id number] CYTOPATHOLOGY REPORT COLLECTION DATE: 02/12/2017 RECEIVED DATE: 02/12/2017 SUBMITTING PHYS: Dr. Haris Graham OTHER PHYS: Edson Blood MD CLINICAL HISTORY: Aortic valve replacement. SPECIMEN(S) RECEIVED: A.Pleural fluid * * * * * * * * * * * * FINAL DIAGNOSIS: Pleural fluid: - No malignant epithelial cells identified. - Reactive mesothelial cells along with inflammatory cells and macrophages. COMMENT: Immunohistochemical stains are performed due to rare atypical appearing cells. (Cell block) Ron-EP4: non-reactive Calretinin: reactive within scattered mesothelial cells Desmin: reactive within the mesothelial cells CD68: numerous macrophages in the background Findings support reactive mesothelial cells along with inflammatory cells, as well as macrophages within this pleural fluid. Co-review: Dr. Keyona Selby (IUV:mgr; d/t: 02/14/17) PATHOLOGIST: Bushra Law M.D. REPORT ELECTRONICALLY SIGNED BY: Bushra Law M.D. DATE/TIME: 02/14/2017 15:25 * * * * * * * * * * * * GROSS PATHOLOGY: A. Pleural fluid: The specimen is submitted unfixed, labeled "Chad Wilkerson". Received by the Cytology Department is 15 mL of cloudy red fluid. One ThinPrep slide and a cell block were prepared. (clt 02.12.2017) VELOCITY SHOOTER(S): KRISTEN Gibson(ASCP) INITIAL CPT CODE(S): A; 98584, 61017, 27141, 88014, [address]3957, [address] [address] CYTO-NONGYN REPORT PROCEDURE Name: CHAD WILKESRON Room #: 213-P [facility] IN M.R.#: [id number] Admission: 02/07/17 Date of : 59 Discharge: Report #: [id number] Path Case #: [id number] Professional services performed by [facility] at [address], [place] [address] [facility] performed by [facility] at [address] [place] [address]., [address], [place] [address]. [address] [place] [address] PHONE: [phone] DIRECTOR: Phill Betts M.D. * * * END OF REPORT * * *
[2017-02-07 07:30] VITALS: BP 148/91
[2017-02-07 15:30] LABS: HEMATOCRIT 25.1 % (42.0-52.0); HEMOGLOBIN 8.8 gm/dL (14.0-18.0); MCH 28.4 pg (26.0-34.0); MCV 81.1 fL (80.0-100.0); RBC 3.1 mil/uL (4.50-6.00); RDW 13.8 % (10.5-14.5); WBC 9.3 thou/uL (4.0-11.0)
[2017-02-07 15:45] LABS: APTT 26.1 Seconds (24.5-32.8); FIBRINOGEN 127.4 mg/dL (210-360); INR 1.4
[2017-02-07 15:56] LABS: POC BE 1 mmol/L (-2.0 to +3.0); POC CA IONIZED 4.6 mg/dL (4.5-5.3); POC FiO2 100 %; POC GLUCOSE 125 mg/dL (70-99); POC HCO3 27.2 mmol/L (22.0-26.0); POC HEMOGLOBIN 8.2 g/dL (14.0-18.0); POC POTASSIUM 3.9 mmol/L (3.5-5.1); POC SODIUM 138 mmol/L (136-145); POC pCO2 50.4 mmHg (35.0-45.0); POC pH 7.339 (7.360-7.450)
[2017-02-07 15:56] LABS: POC BE -1 mmol/L (-2.0 to +3.0); POC CA IONIZED 5.4 mg/dL (4.5-5.3); POC FiO2 100 %; POC GLUCOSE 114 mg/dL (70-99); POC HCO3 23.5 mmol/L (22.0-26.0); POC HEMOGLOBIN 7.8 g/dL (14.0-18.0); POC SODIUM 141 mmol/L (136-145); POC pCO2 37.9 mmHg (35.0-45.0)
[2017-02-07 15:56] LABS: POC BE 1 mmol/L (-2.0 to +3.0); POC CA IONIZED 4.8 mg/dL (4.5-5.3); POC FiO2 100 %; POC GLUCOSE 243 mg/dL (70-99); POC HCO3 25.1 mmol/L (22.0-26.0); POC HEMOGLOBIN 10.5 g/dL (14.0-18.0); POC POTASSIUM 3.1 mmol/L (3.5-5.1); POC SODIUM 138 mmol/L (136-145); POC pCO2 36.7 mmHg (35.0-45.0); POC pH 7.442 (7.360-7.450)
[2017-02-07 15:56] LABS: POC BE 2 mmol/L (-2.0 to +3.0); POC CA IONIZED 4.8 mg/dL (4.5-5.3); POC FiO2 100 %; POC GLUCOSE 267 mg/dL (70-99); POC HCO3 24.9 mmol/L (22.0-26.0); POC HEMOGLOBIN 10.2 g/dL (14.0-18.0); POC POTASSIUM 3.9 mmol/L (3.5-5.1); POC SODIUM 137 mmol/L (136-145); POC pCO2 32.6 mmHg (35.0-45.0); POC pH 7.491 (7.360-7.450)
[2017-02-07 15:56] LABS: POC BE 1 mmol/L (-2.0 to +3.0); POC CA IONIZED 4.6 mg/dL (4.5-5.3); POC FiO2 100 %; POC GLUCOSE 126 mg/dL (70-99); POC HCO3 26.4 mmol/L (22.0-26.0); POC HEMOGLOBIN 8.5 g/dL (14.0-18.0); POC POTASSIUM 3.8 mmol/L (3.5-5.1); POC SODIUM 138 mmol/L (136-145); POC pCO2 47.6 mmHg (35.0-45.0); POC pH 7.352 (7.360-7.450)
[2017-02-07 15:56] LABS: POC BE 1 mmol/L (-2.0 to +3.0); POC CA IONIZED 4.7 mg/dL (4.5-5.3); POC FiO2 100 %; POC GLUCOSE 122 mg/dL (70-99); POC HCO3 27.2 mmol/L (22.0-26.0); POC HEMOGLOBIN 7.8 g/dL (14.0-18.0); POC POTASSIUM 4.3 mmol/L (3.5-5.1); POC SODIUM 139 mmol/L (136-145); POC pCO2 50.5 mmHg (35.0-45.0)
[2017-02-07 15:56] LABS: POC BE 1 mmol/L (-2.0 to +3.0); POC CA IONIZED 4.5 mg/dL (4.5-5.3); POC FiO2 100 %; POC GLUCOSE 132 mg/dL (70-99); POC HEMOGLOBIN 8.5 g/dL (14.0-18.0); POC POTASSIUM 3.9 mmol/L (3.5-5.1); POC SODIUM 136 mmol/L (136-145); POC pCO2 45.9 mmHg (35.0-45.0); POC pH 7.361 (7.360-7.450)
[2017-02-07 15:56] LABS: POC BE -5 mmol/L (-2.0 to +3.0); POC CA IONIZED 4.2 mg/dL (4.5-5.3); POC FiO2 100 %; POC GLUCOSE 164 mg/dL (70-99); POC HEMOGLOBIN 7.8 g/dL (14.0-18.0); POC POTASSIUM 3.7 mmol/L (3.5-5.1); POC SODIUM 130 mmol/L (136-145); POC pCO2 39.9 mmHg (35.0-45.0); POC pH 7.329 (7.360-7.450)
[2017-02-07 15:56] LABS: POC BE -1 mmol/L (-2.0 to +3.0); POC CA IONIZED 4.4 mg/dL (4.5-5.3); POC FiO2 100 %; POC GLUCOSE 143 mg/dL (70-99); POC HCO3 24.6 mmol/L (22.0-26.0); POC HEMOGLOBIN 7.8 g/dL (14.0-18.0); POC POTASSIUM 3.5 mmol/L (3.5-5.1); POC SODIUM 132 mmol/L (136-145); POC pCO2 43.6 mmHg (35.0-45.0)
[2017-02-07 15:56] LABS: POC BE -1 mmol/L (-2.0 to +3.0); POC CA IONIZED 4.1 mg/dL (4.5-5.3); POC FiO2 100 %; POC GLUCOSE 166 mg/dL (70-99); POC HCO3 24.5 mmol/L (22.0-26.0); POC HEMOGLOBIN 8.2 g/dL (14.0-18.0); POC POTASSIUM 3.6 mmol/L (3.5-5.1); POC SODIUM 130 mmol/L (136-145); POC pCO2 43.4 mmHg (35.0-45.0)
[2017-02-07 15:56] LABS: POC BE 1 mmol/L (-2.0 to +3.0); POC CA IONIZED 4.7 mg/dL (4.5-5.3); POC FiO2 100 %; POC GLUCOSE 128 mg/dL (70-99); POC HCO3 26.5 mmol/L (22.0-26.0); POC HEMOGLOBIN 8.2 g/dL (14.0-18.0); POC SODIUM 139 mmol/L (136-145); POC pCO2 45.7 mmHg (35.0-45.0); POC pH 7.371 (7.360-7.450)
[2017-02-07 16:41] LABS: ABG SAMPLE TYPE ARTERIAL; BE(vivo) -4.1 mmol/L (-2 to +3); HCO3 19.6 mmol/L (22.0-26.0); O2(CT) 14.6 mL/dL (15.0-23.0); O2Hb 97.1 % (92.0-98.0); PCO2 31.1 mmHg (35.0-45.0); PO2 151.6 mmHg (80.0-100.0); pH 7.417 (7.360-7.450); tCO2 20.5 mmol/L (24.0-30.0)
[2017-02-07 16:42] LABS: STICK SITE LINE; TIDAL VOLUME 600 ml
[2017-02-07 16:50] LABS: HEMATOCRIT 29.4 % (42.0-52.0); HEMOGLOBIN 10.3 gm/dL (14.0-18.0); MCH 28.2 pg (26.0-34.0); MCHC 34.9 g/dL (28.0-37.0); MCV 80.7 fL (80.0-100.0); RBC 3.65 mil/uL (4.50-6.00); RDW 13.6 % (10.5-14.5); WBC 11.6 thou/uL (4.0-11.0)
[2017-02-07 16:53] VITALS: BP 100/60; BP 114/57
[2017-02-07 16:56] LABS: POTASSIUM 4.2 mmol/L (3.5-5.1)
[2017-02-07 19:51] LABS: ABG SAMPLE TYPE ARTERIAL; BE(vivo) -4.1 mmol/L (-2 to +3); HCO3 20.6 mmol/L (22.0-26.0); LACTATE 1.61 mmol/L (0.5-2.0); O2(CT) 15.1 mL/dL (15.0-23.0); PCO2 36.4 mmHg (35.0-45.0); Pressure Support 10 cm H20; STICK SITE ALINE; TIDAL VOLUME 540 ml; pH 7.371 (7.360-7.450); sO2 98.7 % (92.0-98.0); tCO2 21.7 mmol/L (24.0-30.0)
[2017-02-07 20:30] LABS: HEMATOCRIT 29.2 % (42.0-52.0); HEMOGLOBIN 10.2 gm/dL (14.0-18.0); MCH 28.2 pg (26.0-34.0); MCHC 34.8 g/dL (28.0-37.0); RBC 3.6 mil/uL (4.50-6.00); RDW 13.9 % (10.5-14.5); WBC 12.2 thou/uL (4.0-11.0)
[2017-02-07 20:39] LABS: CALCIUM 8.3 mg/dL (8.5-10.1); CREATININE 1.1 mg/dL (0.7-1.3); POTASSIUM 4.5 mmol/L (3.5-5.1)
[2017-02-07 21:45] LABS: ABG SAMPLE TYPE ARTERIAL; BE(vivo) -4.7 mmol/L (-2 to +3); Face Shield 50 %; HCO3 20.3 mmol/L (22.0-26.0); LACTATE 2.19 mmol/L (0.5-2.0); O2(CT) 15.4 mL/dL (15.0-23.0); O2Hb 95.4 % (92.0-98.0); PCO2 37.6 mmHg (35.0-45.0); STICK SITE ALINE; pH 7.351 (7.360-7.450); tCO2 21.5 mmol/L (24.0-30.0)
[2017-02-08 05:40] LABS: HEMATOCRIT 31.8 % (42.0-52.0); HEMOGLOBIN 10.7 gm/dL (14.0-18.0); MCHC 33.7 g/dL (28.0-37.0); RBC 3.83 mil/uL (4.50-6.00); RDW 14.2 % (10.5-14.5); WBC 12.6 thou/uL (4.0-11.0)
[2017-02-08 05:48] LABS: CALCIUM 8.3 mg/dL (8.5-10.1); CREATININE 1.6 mg/dL (0.7-1.3); POTASSIUM 3.8 mmol/L (3.5-5.1)
[2017-02-08 20:06] LABS: ABG SAMPLE TYPE ARTERIAL; BE(vivo) -17.6 mmol/L (-2 to +3); HCO3 12.6 mmol/L (22.0-26.0); LACTATE 8.21 mmol/L (0.5-2.0); O2(CT) 13.6 mL/dL (15.0-23.0); O2Hb 95.7 % (92.0-98.0); PCO2 49.6 mmHg (35.0-45.0); PO2 135.7 mmHg (80.0-100.0); STICK SITE LINE; pH 7.022 (7.360-7.450); sO2 97.2 % (92.0-98.0); tCO2 14.1 mmol/L (24.0-30.0)
[2017-02-08 20:16] LABS: HEMATOCRIT 28.7 % (42.0-52.0); HEMOGLOBIN 9.4 gm/dL (14.0-18.0); MCHC 32.8 g/dL (28.0-37.0); MCV 85.3 fL (80.0-100.0); RBC 3.36 mil/uL (4.50-6.00); RDW 14.7 % (10.5-14.5); WBC 15.9 thou/uL (4.0-11.0)
[2017-02-08 20:23] LABS: CALCIUM 8.3 mg/dL (8.5-10.1); POTASSIUM 4.7 mmol/L (3.5-5.1)
[2017-02-08 21:02] LABS: ABG SAMPLE TYPE ARTERIAL; BE(vivo) -19.2 mmol/L (-2 to +3); HCO3 11.6 mmol/L (22.0-26.0); O2(CT) 15.2 mL/dL (15.0-23.0); O2Hb 91.2 % (92.0-98.0); PCO2 48.3 mmHg (35.0-45.0); PO2 90.9 mmHg (80.0-100.0); sO2 91.8 % (92.0-98.0); tCO2 13.1 mmol/L (24.0-30.0)
[2017-02-08 21:07] LABS: LACTATE 5.95 mmol/L (0.5-2.0); STICK SITE ALINE
[2017-02-08 21:08] LABS: FIO2 100 %
[2017-02-08 21:10] LABS: ABG SAMPLE TYPE ARTERIAL; BE(vivo) -16.5 mmol/L (-2 to +3); HCO3 10.2 mmol/L (22.0-26.0); O2(CT) 14.4 mL/dL (15.0-23.0); O2Hb 96.9 % (92.0-98.0); PCO2 27.1 mmHg (35.0-45.0); PO2 153.5 mmHg (80.0-100.0); sO2 98.6 % (92.0-98.0)
[2017-02-08 21:11] LABS: LACTATE 10.38 mmol/L (0.5-2.0); STICK SITE ALINE; TIDAL VOLUME 600 ml; pH 7.192 (7.360-7.450)
[2017-02-08 22:30] LABS: ABG SAMPLE TYPE ARTERIAL; BE(vivo) -17.4 mmol/L (-2 to +3); HCO3 9.3 mmol/L (22.0-26.0); LACTATE 10.55 mmol/L (0.5-2.0); O2(CT) 13.7 mL/dL (15.0-23.0); O2Hb 92.7 % (92.0-98.0); PCO2 25.2 mmHg (35.0-45.0); PO2 85.3 mmHg (80.0-100.0); STICK SITE ALINE; pH 7.186 (7.360-7.450); sO2 94.3 % (92.0-98.0); tCO2 10.1 mmol/L (24.0-30.0)
[2017-02-08 22:31] LABS: TIDAL VOLUME 610 ml
[2017-02-09 05:12] LABS: ABG SAMPLE TYPE ARTERIAL; BE(vivo) -11.3 mmol/L (-2 to +3); HCO3 12.7 mmol/L (22.0-26.0); O2(CT) 12.4 mL/dL (15.0-23.0); O2Hb 88.9 % (92.0-98.0); PO2 61.8 mmHg (80.0-100.0); pH 7.353 (7.360-7.450); sO2 91.3 % (92.0-98.0); tCO2 13.4 mmol/L (24.0-30.0)
[2017-02-09 05:13] LABS: LACTATE 7.18 mmol/L (0.5-2.0); PCO2 23.3 mmHg (35.0-45.0); STICK SITE ALINE; TIDAL VOLUME 610 ml
[2017-02-09 05:27] LABS: HEMATOCRIT 27.1 % (42.0-52.0); HEMOGLOBIN 9.2 gm/dL (14.0-18.0); MCH 28.3 pg (26.0-34.0); MCHC 33.8 g/dL (28.0-37.0); MCV 83.7 fL (80.0-100.0); RBC 3.24 mil/uL (4.50-6.00); RDW 14.6 % (10.5-14.5); WBC 13.9 thou/uL (4.0-11.0)
[2017-02-09 05:44] LABS: ALBUMIN 3.4 g/dL (3.4-5.0); CALCIUM 7.4 mg/dL (8.5-10.1); CREATININE 3.6 mg/dL (0.7-1.3); MAGNESIUM 2.2 mg/dL (1.8-2.4); PHOSPHORUS 6.2 mg/dL (2.5-4.9)
[2017-02-09 05:47] LABS: CHOLESTEROL < 50 mg/dL (<200); HDL CHOLESTEROL 24 mg/dL (>40); LDL CHOLESTEROL 20.99999 mg/dL (<100); POTASSIUM 6.5 mmol/L (3.5-5.1); TC:HDL 2.1 Ratio (Not establshd); TRIGLYCERIDE 28 mg/dL (<150); VLDL 6 mg/dL (<40)
[2017-02-09 07:31] LABS: FOLIC ACID 42.5 ng/mL (8.6-58.9)
[2017-02-09 09:28] LABS: ALBUMIN 3.2 g/dL (3.4-5.0); CALCIUM 7.4 mg/dL (8.5-10.1); CREATININE 3.8 mg/dL (0.7-1.3); PHOSPHORUS 5.1 mg/dL (2.5-4.9)
[2017-02-09 09:29] LABS: POTASSIUM 4.8 mmol/L (3.5-5.1)
[2017-02-09 09:57] LABS: URINE BILIRUBIN NEGATIVE (Negative); URINE BLOOD 3+ (Negative); URINE COLOR YELLOW; URINE GLUCOSE-RANDOM* 1+ (Negative); URINE KETONES TRACE (Negative); URINE NITRITE NEGATIVE (Negative); URINE PROTEIN (DIPSTICK) 1+ (Negative); URINE SPECIFIC GRAVITY 1.025 (1.003-1.035); URINE UROBILINOGEN 0.2 E.U./dl (0.2-1.0)
[2017-02-09 10:05] LABS: URINE RBC 3-10 Few /HPF (0-2)
[2017-02-09 10:06] LABS: CASTS None Seen /LPF (None Seen); CRYSTALS None Seen /LPF (None Seen); SQUAMOUS 0-3 Few /LPF (0-3); URINE WBC None Seen /HPF (0-5)
[2017-02-09 10:07] LABS: AMORPHOUS URATES Few /LPF (None Seen); BACTERIA 1-9 Few /HPF (None Seen)
[2017-02-09 12:13] LABS: ABG SAMPLE TYPE ARTERIAL; BE(vivo) -5.8 mmol/L (-2 to +3); HCO3 17.6 mmol/L (22.0-26.0); LACTATE 2.49 mmol/L (0.5-2.0); O2(CT) 12.9 mL/dL (15.0-23.0); O2Hb 93.5 % (92.0-98.0); PCO2 27.5 mmHg (35.0-45.0); PO2 80.2 mmHg (80.0-100.0); STICK SITE LINE; pH 7.424 (7.360-7.450); sO2 96.3 % (92.0-98.0); tCO2 18.4 mmol/L (24.0-30.0)
[2017-02-09 12:14] LABS: TIDAL VOLUME 610 ml
[2017-02-09 12:23] LABS: CALCIUM 7.3 mg/dL (8.5-10.1); POTASSIUM 4.6 mmol/L (3.5-5.1)
[2017-02-09 16:06] LABS: URINE CREATININE-RANDOM* 80.4 mg/dL (Not Estab.); URINE PROTEIN-RANDOM* 67.2 mg/dL (Not Estab.)
[2017-02-09 17:13] LABS: CALCIUM 7.1 mg/dL (8.5-10.1); CREATININE 4.1 mg/dL (0.7-1.3); POTASSIUM 3.8 mmol/L (3.5-5.1)
[2017-02-10 01:05] LABS: GLYCOHEMOGLOBIN (HGB A1C) 11.4 % (4.8-5.6)
[2017-02-10 04:07] LABS: ABG SAMPLE TYPE ARTERIAL; BE(vivo) -3.1 mmol/L (-2 to +3); HCO3 19.7 mmol/L (22.0-26.0); LACTATE 1.83 mmol/L (0.5-2.0); O2(CT) 13.8 mL/dL (15.0-23.0); O2Hb 93.7 % (92.0-98.0); PCO2 28.2 mmHg (35.0-45.0); PO2 76.6 mmHg (80.0-100.0); pH 7.463 (7.360-7.450); sO2 96.2 % (92.0-98.0); tCO2 20.6 mmol/L (24.0-30.0)
[2017-02-10 04:08] LABS: ABG COMMENT A/C MODE; STICK SITE LINE; TIDAL VOLUME 610 ml
[2017-02-10 04:48] LABS: HEMATOCRIT 28.6 % (42.0-52.0); HEMOGLOBIN 9.9 gm/dL (14.0-18.0); MCH 28.4 pg (26.0-34.0); MCHC 34.5 g/dL (28.0-37.0); MCV 82.2 fL (80.0-100.0); RBC 3.48 mil/uL (4.50-6.00); RDW 14.3 % (10.5-14.5); WBC 9.7 thou/uL (4.0-11.0)
[2017-02-10 05:02] LABS: APTT 30.5 Seconds (24.5-32.8); INR 1.7; PROTIME 17.4 Seconds (9.3-11.4)
[2017-02-10 05:12] LABS: ALBUMIN 3.1 g/dL (3.4-5.0); CALCIUM 7.4 mg/dL (8.5-10.1); CREATININE 4.8 mg/dL (0.7-1.3); MAGNESIUM 2.1 mg/dL (1.8-2.4); PHOSPHORUS 5.6 mg/dL (2.5-4.9); TOTAL BILIRUBIN 1.1 mg/dL (<0.1-1.0); TOTAL PROTEIN 5.8 g/dL (6.4-8.2)
[2017-02-10 11:45] LABS: ABG SAMPLE TYPE ARTERIAL; BE(vivo) -1.8 mmol/L (-2 to +3); HCO3 20.8 mmol/L (22.0-26.0); LACTATE 2.33 mmol/L (0.5-2.0); O2(CT) 13.6 mL/dL (15.0-23.0); O2Hb 93.5 % (92.0-98.0); PCO2 28.3 mmHg (35.0-45.0); Pressure Support 8 cm H20; STICK SITE LINE; pH 7.484 (7.360-7.450); sO2 96.2 % (92.0-98.0); tCO2 21.7 mmol/L (24.0-30.0)
[2017-02-10 21:04] LABS: ABG SAMPLE TYPE ARTERIAL; BE(vivo) 0.5 mmol/L (-2 to +3); HCO3 22.8 mmol/L (22.0-26.0); LACTATE 2.16 mmol/L (0.5-2.0); O2(CT) 12.7 mL/dL (15.0-23.0); O2Hb 85.4 % (92.0-98.0); PCO2 28.7 mmHg (35.0-45.0); PO2 51.4 mmHg (80.0-100.0); STICK SITE ALINE; pH 7.517 (7.360-7.450); sO2 90.4 % (92.0-98.0); tCO2 23.6 mmol/L (24.0-30.0)
[2017-02-10 21:05] LABS: Pressure Support 12 cm H20
[2017-02-11 03:47] LABS: ABG SAMPLE TYPE ARTERIAL; BE(vivo) 1.8 mmol/L (-2 to +3); HCO3 24.1 mmol/L (22.0-26.0); LACTATE 2.03 mmol/L (0.5-2.0); O2(CT) 13.2 mL/dL (15.0-23.0); O2Hb 91.4 % (92.0-98.0); PCO2 29.9 mmHg (35.0-45.0); PO2 65.7 mmHg (80.0-100.0); pH 7.524 (7.360-7.450); sO2 95.1 % (92.0-98.0)
[2017-02-11 03:48] LABS: Pressure Support 12 cm H20; STICK SITE ALINE; TIDAL VOLUME 550 ml
[2017-02-11 04:11] LABS: GLYCOHEMOGLOBIN (HGB A1C) 10.8 % (4.8-5.6)
[2017-02-11 06:08] LABS: CREATININE 4.8 mg/dL (0.7-1.3); PHOSPHORUS 5.2 mg/dL (2.5-4.9); POTASSIUM 3.6 mmol/L (3.5-5.1)
[2017-02-11 13:30] LABS: HEMATOCRIT 29.2 % (42.0-52.0); HEMOGLOBIN 9.9 gm/dL (14.0-18.0); MCHC 33.9 g/dL (28.0-37.0); MCV 82.5 fL (80.0-100.0); RBC 3.54 mil/uL (4.50-6.00); RDW 14.1 % (10.5-14.5); WBC 7.9 thou/uL (4.0-11.0)
[2017-02-12 00:44] LABS: ABG SAMPLE TYPE ARTERIAL; BE(vivo) 2.9 mmol/L (-2 to +3); HCO3 25.9 mmol/L (22.0-26.0); LACTATE 2.19 mmol/L (0.5-2.0); O2(CT) 14.3 mL/dL (15.0-23.0); O2Hb 92.8 % (92.0-98.0); PCO2 33.6 mmHg (35.0-45.0); PO2 71.7 mmHg (80.0-100.0); pH 7.504 (7.360-7.450); sO2 95.8 % (92.0-98.0); tCO2 26.9 mmol/L (24.0-30.0)
[2017-02-12 00:45] LABS: Pressure Support 6 cm H20; STICK SITE LINE; TIDAL VOLUME 550 ml
[2017-02-12 05:12] LABS: ALBUMIN 3.1 g/dL (3.4-5.0); CALCIUM 8.6 mg/dL (8.5-10.1); PHOSPHORUS 4.5 mg/dL (2.5-4.9); POTASSIUM 3.4 mmol/L (3.5-5.1); TOTAL BILIRUBIN 2.2 mg/dL (<0.1-1.0); TOTAL PROTEIN 6.7 g/dL (6.4-8.2)
[2017-02-12 05:40] LABS: CREATININE 3.6 mg/dL (0.7-1.3)
[2017-02-12 08:54] LABS: HEMATOCRIT 31.8 % (42.0-52.0); HEMOGLOBIN 10.5 gm/dL (14.0-18.0); MCH 27.9 pg (26.0-34.0); MCV 84.4 fL (80.0-100.0); RBC 3.77 mil/uL (4.50-6.00); RDW 14.4 % (10.5-14.5); WBC 8.7 thou/uL (4.0-11.0)
[2017-02-12 15:14] LABS: ABG SAMPLE TYPE ARTERIAL; BE(vivo) -1.7 mmol/L (-2 to +3); HCO3 21.6 mmol/L (22.0-26.0); LACTATE 2.14 mmol/L (0.5-2.0); O2(CT) 13.5 mL/dL (15.0-23.0); O2Hb 92.1 % (92.0-98.0); PCO2 31.6 mmHg (35.0-45.0); PO2 70.2 mmHg (80.0-100.0); pH 7.453 (7.360-7.450); tCO2 22.6 mmol/L (24.0-30.0)
[2017-02-12 15:15] LABS: ABG COMMENT AVAPS 550/6; STICK SITE LINE
[2017-02-12 15:51] LABS: CLARITY TURBID; COLOR RED; TOTAL VOLUME 60 mL
[2017-02-12 16:18] LABS: BF NUCLEATED CELLS 10273; BF RBC 1555563
[2017-02-12 17:07] LABS: MANUAL DIFF YES
[2017-02-12 17:10] LABS: BF MACROPHAGE 90
[2017-02-12 17:11] LABS: BF NEUTROPHILS 8
[2017-02-13 04:58] LABS: ALBUMIN 2.7 g/dL (3.4-5.0); CALCIUM 8.2 mg/dL (8.5-10.1); PHOSPHORUS 3.2 mg/dL (2.5-4.9); POTASSIUM 3.2 mmol/L (3.5-5.1)
[2017-02-13 04:59] LABS: CREATININE 2.6 mg/dL (0.7-1.3)
[2017-02-13 12:15] LABS: BODY FLUID ALBUMIN 2.5 g/dL (()); BODY FLUID AMYLASE 52 U/L (()); BODY FLUID GLUCOSE 250 mg/dL (()); BODY FLUID LDH 880 IU/L (()); BODY FLUID PROTEIN 3.2 g/dL (())
[2017-02-13 15:45] VITALS: BP 126/77
[2017-02-13 16:00] VITALS: BP 134/77
[2017-02-13 17:00] VITALS: BP 121/80
[2017-02-13 19:00] VITALS: BP 133/83
[2017-02-13 20:00] VITALS: BP 123/78
[2017-02-13 21:00] VITALS: BP 120/72
[2017-02-14 02:43] VITALS: BP 136/76
[2017-02-14 04:33] VITALS: BP 138/86
[2017-02-14 04:44] LABS: HEMATOCRIT 28.3 % (42.0-52.0); HEMOGLOBIN 9.6 gm/dL (14.0-18.0); MCH 28.3 pg (26.0-34.0); MCV 83.2 fL (80.0-100.0); RBC 3.4 mil/uL (4.50-6.00); WBC 8.5 thou/uL (4.0-11.0)
[2017-02-14 04:51] LABS: ALBUMIN 2.4 g/dL (3.4-5.0); CALCIUM 7.9 mg/dL (8.5-10.1); CREATININE 1.7 mg/dL (0.7-1.3); PHOSPHORUS 1.9 mg/dL (2.5-4.9); TOTAL BILIRUBIN 1.4 mg/dL (<0.1-1.0); TOTAL PROTEIN 6.3 g/dL (6.4-8.2)
[2017-02-14 04:56] LABS: POTASSIUM 2.6 mmol/L (3.5-5.1)
[2017-02-14 16:38] VITALS: BP 137/84
[2017-02-14 17:59] LABS: CLARITY CLOUDY; COLOR RED; TOTAL VOLUME 55 mL
[2017-02-14 18:18] LABS: BF NUCLEATED CELLS 1481; BF RBC 56026
[2017-02-14 20:45] VITALS: BP 141/82
[2017-02-14 21:04] LABS: MANUAL DIFF YES
[2017-02-14 21:06] LABS: BF MACROPHAGE 16; BF NEUTROPHILS 73
[2017-02-15] VITALS (7 sets, daily range): BP systolic 125–157; BP diastolic 62–97
[2017-02-15 03:41] LABS: CALCIUM 7.4 mg/dL (8.5-10.1); CREATININE 1.4 mg/dL (0.7-1.3); PHOSPHORUS 2.9 mg/dL (2.5-4.9); POTASSIUM 3.3 mmol/L (3.5-5.1)
[2017-02-16 02:30] VITALS: BP 127/85
[2017-02-16 03:09] LABS: ABG SAMPLE TYPE ARTERIAL; BE(vivo) 1.6 mmol/L (-2 to +3); HCO3 24.8 mmol/L (22.0-26.0); LACTATE 1.39 mmol/L (0.5-2.0); O2(CT) 13.7 mL/dL (15.0-23.0); O2Hb 91.9 % (92.0-98.0); PCO2 33.7 mmHg (35.0-45.0); PO2 64.4 mmHg (80.0-100.0); pH 7.484 (7.360-7.450); sO2 94.2 % (92.0-98.0); tCO2 25.8 mmol/L (24.0-30.0)
[2017-02-16 03:10] LABS: STICK SITE R.RADIAL
[2017-02-16 04:23] LABS: ALBUMIN 2.9 g/dL (3.4-5.0); CALCIUM 8.2 mg/dL (8.5-10.1); CREATININE 1.5 mg/dL (0.7-1.3); PHOSPHORUS 2.6 mg/dL (2.5-4.9); POTASSIUM 3.6 mmol/L (3.5-5.1)
[2017-02-16 06:33] VITALS: BP 128/82
[2017-02-16 07:25] VITALS: BP 133/75
[2017-02-16 10:10] LABS: BODY FLUID ALBUMIN 1.5 g/dL (()); BODY FLUID AMYLASE 11 U/L (()); BODY FLUID GLUCOSE 248 mg/dL (()); BODY FLUID LDH 354 IU/L (()); BODY FLUID PROTEIN 2.8 g/dL (())
[2017-02-16 11:10] VITALS: BP 115/69
[2017-02-16 19:56] VITALS: BP 112/68
[2017-02-16 23:30] VITALS: BP 139/88
[2017-02-17 03:31] LABS: MCHC 33.3 g/dL (28.0-37.0); MCV 84.1 fL (80.0-100.0); RBC 3.21 mil/uL (4.50-6.00); WBC 7.9 thou/uL (4.0-11.0)
[2017-02-17 03:47] VITALS: BP 126/80
[2017-02-17 03:49] LABS: ALBUMIN 2.6 g/dL (3.4-5.0); CREATININE 1.4 mg/dL (0.7-1.3); PHOSPHORUS 3.5 mg/dL (2.5-4.9); POTASSIUM 3.9 mmol/L (3.5-5.1)
[2017-02-17 07:30] VITALS: BP 139/81
[2017-02-17 11:30] VITALS: BP 135/81
[2017-02-17 16:25] VITALS: BP 113/62
[2017-02-17 20:29] VITALS: BP 148/70
[2017-02-18 04:27] LABS: ALBUMIN 2.7 g/dL (3.4-5.0); CALCIUM 8.2 mg/dL (8.5-10.1); CREATININE 1.3 mg/dL (0.7-1.3); PHOSPHORUS 3.7 mg/dL (2.5-4.9); POTASSIUM 3.9 mmol/L (3.5-5.1)
[2017-02-18 05:00] VITALS: BP 136/73
[2017-02-18 07:31] VITALS: BP 142/81
[2017-02-18 10:28] VITALS: BP 142/81
[2017-02-18 11:12] VITALS: BP 121/69
[2017-02-18 15:19] LABS: HEMATOCRIT 30.3 % (42.0-52.0); MCHC 32.9 g/dL (28.0-37.0); RBC 3.56 mil/uL (4.50-6.00); RDW 14.5 % (10.5-14.5); WBC 8.5 thou/uL (4.0-11.0)
[2017-02-18 16:29] VITALS: BP 121/74
[2017-02-18 20:03] VITALS: BP 125/61
[2017-02-19 03:55] VITALS: BP 124/65
[2017-02-19 07:15] VITALS: BP 130/64; BP 142/81
[2017-02-19 07:27] LABS: ALBUMIN 2.8 g/dL (3.4-5.0); CREATININE 1.4 mg/dL (0.7-1.3); PHOSPHORUS 3.6 mg/dL (2.5-4.9)
[2017-02-19 07:40] VITALS: BP 1/82; BP 155/82
[2017-02-19 11:25] VITALS: BP 130/64
[2017-02-19] MEDS ORDERED: ARIXTRA7.5 MG/0.6 SUBQ (13:56)
[2017-02-19] MEDS ORDERED: OXYCODONE HCL 55 MG PO (13:56)
[2017-02-19] MEDS ORDERED: COUMADIN 5 MG TA5 M1 PO (13:56)
[2017-02-19] MEDS ORDERED: METOPROLOL SUCC50 MG PO (13:56)
[2017-02-19] MEDS ORDERED: PACERONE 200 M200 M1 PO (13:56)
[2017-02-19] MEDS ORDERED: BIPAP MISCELL (14:09)
[2017-02-19] MEDS ORDERED: LEVAQUIN 500 M500 M2 PO (14:21)
== END 2017-02-19 16:17 | disposition home or self-care (01) | DRG 219 ==
LOC: PRE 06:27 → TBA 02-07 05:38 → ICU 02-07 05:38 → PRE 02-07 13:20 → ICU 02-07 17:51 → 2N 02-14 02:29
PROVIDERS: Anesthesiology; Hospitalist; Internal Medicine Cardiovascular Disease; Internal Medicine Nephrology; Internal Medicine Pulmonary Disease; Nurse Practitioner Acute Care; Physician Assistant; Psychiatry & Neurology Neurology; Surgery Vascular Surgery
PROC: 02RF08Z Replacement of Aortic Valve with Zooplastic Tissue, Open Approach (ICD-10-PCS; principal; 2017-02-07)
PROC: 021109W Bypass Coronary Artery, Two Arteries from Aorta with Autologous Venous Tissue, Open Approach (ICD-10-PCS; principal; 2017-02-07)
PROC: 03HB33Z Insertion of Infusion Device into Right Radial Artery, Percutaneous Approach (ICD-10-PCS; 2017-02-07)
PROC: 0BH17EZ Insertion of Endotracheal Airway into Trachea, Via Natural or Artificial Opening (ICD-10-PCS; 2017-02-07)
PROC: 02HV33Z Insertion of Infusion Device into Superior Vena Cava, Percutaneous Approach (ICD-10-PCS; 2017-02-07)
PROC: B548ZZA Ultrasonography of Superior Vena Cava, Guidance (ICD-10-PCS; 2017-02-07)
PROC: 5A1945Z Respiratory Ventilation, 24-96 Consecutive Hours (ICD-10-PCS; 2017-02-09)
PROC: 5A1221Z Performance of Cardiac Output, Continuous (ICD-10-PCS; 2017-02-09)
PROC: 06BQ4ZZ Excision of Left Saphenous Vein, Percutaneous Endoscopic Approach (ICD-10-PCS; 2017-02-09)
PROC: 5A09357 Assistance with Respiratory Ventilation, Less than 24 Consecutive Hours, Continuous Positive Airway Pressure (ICD-10-PCS; 2017-02-11)
PROC: 0W993ZZ Drainage of Right Pleural Cavity, Percutaneous Approach (ICD-10-PCS; 2017-02-12)
PROC: BB4BZZZ Ultrasonography of Pleura (ICD-10-PCS; 2017-02-12)
DX: I35.0 Nonrheumatic aortic (valve) stenosis (principal); I46.9 Cardiac arrest, cause unspecified; J96.91 Respiratory failure, unspecified with hypoxia; G93.40 Encephalopathy, unspecified; K72.00 Acute and subacute hepatic failure without coma; N17.9 Acute kidney failure, unspecified; E87.3 Alkalosis; E87.2 Acidosis; I47.2 Ventricular tachycardia; J90 Pleural effusion, not elsewhere classified; E87.0 Hyperosmolality and hypernatremia; I25.10 Atherosclerotic heart disease of native coronary artery without angina pectoris; I25.5 Ischemic cardiomyopathy; E11.65 Type 2 diabetes mellitus with hyperglycemia; I95.9 Hypotension, unspecified; K59.00 Constipation, unspecified; E78.5 Hyperlipidemia, unspecified; Z96.651 Presence of right artificial knee joint; E11.22 Type 2 diabetes mellitus with diabetic chronic kidney disease; I12.9 Hypertensive chronic kidney disease with stage 1 through stage 4 chronic kidney disease, or unspecified chronic kidney disease; N18.9 Chronic kidney disease, unspecified; D64.9 Anemia, unspecified; I49.9 Cardiac arrhythmia, unspecified; E87.5 Hyperkalemia; D69.6 Thrombocytopenia, unspecified; E87.6 Hypokalemia; I25.2 Old myocardial infarction; Z95.810 Presence of automatic (implantable) cardiac defibrillator; Z88.0 Allergy status to penicillin; Z88.8 Allergy status to other drugs, medicaments and biological substances; Z79.899 Other long term (current) drug therapy; Z79.82 Long term (current) use of aspirin; Z86.73 Personal history of transient ischemic attack (TIA), and cerebral infarction without residual deficits; Z80.0 Family history of malignant neoplasm of digestive organs; Z82.49 Family history of ischemic heart disease and other diseases of the circulatory system; Z83.3 Family history of diabetes mellitus
CPT/HCPCS: 10078; 10081; 47000; 47001; 47002; 47297; 47335; 48888; 50249; 50409; 50456; 50497; 50668; 51932; 52131; 53327; 53358; 54118; 55022; 56524; 56525; 56526; 56527; 56528; 56531; 56534; 56639; 56660; 56898; 57080; 57082; 57093; 62110; 62950; 64029; 65002; 65003; 65043; 65090; 65120; 85076

== ENCOUNTER 2017-02-22 09:36 | Inpatient (IN) | payer OTHER ==
[~2017-02-22] VITALS: Ht 175.3 cm; Wt 89.4 kg
--- NOTE | ~2017-02-22 | HC ---
[facility] [place] [address] CONSULTATION Name: CHAD ROBBINS Room #: 208-P ADM IN M.R.#: [id number] Admission: 02/22/17 Attend Phys: Jac Crocker MD Discharge: Date of : 59 Report #: [id number] THIS REPORT FOR: //name// CC: Jac Blood DATE OF SERVICE: 02/22/2017 HISTORY OF PRESENT ILLNESS: The patient is a 61-year-old black male who I was asked to see in the hospital today after he had a syncopal spell. The patient initially presented in 2012, with a cardiac arrest while he was shoveling snow. He was taken urgently to [facility] in [place]. I performed an urgent cardiac catheterization that showed a stenosis in the circumflex artery. No stents were placed at that time. He was placed on code ice. He eventually was extubated. He was then transferred to [facility] and had a stent placed in the circumflex. He had a defibrillator implanted. He has done well since that time, recently he was having recurrent chest pain. Heart catheterization at [facility] showed coronary artery disease and evidence of significant aortic stenosis. The patient was complaining of chest pain and shortness of breath. He saw Dr. Graham and was electively admitted to [facility] on February 07, and underwent aortic valve replacement using a tissue valve, vein graft to the diagonal, vein graft to the circumflex. He then had a prolonged postoperative hospital course. He developed respiratory failure and had to be reintubated. He developed hypotension and had to be placed on pressors. He developed acute renal failure and acute liver failure. However, he eventually improved. 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 The patient did have thoracentesis prior to being discharged. He was sent home on BiPAP. The patient was just discharged 3 days ago. He notes that since his discharge, he has been short of breath. He has had no appetite. Yesterday, he noticed more edema. Today, he got up to the bathroom, felt weak and apparently he collapsed to the floor. He apparently did not lose consciousness. His drove him to the emergency room at [facility]. He was evaluated there and transferred by ambulance to [facility]. He denied any recent vomiting, bleeding, and diarrhea. He has had some chest soreness. He has had no palpitations. PAST MEDICAL HISTORY: Otherwise is significant for no other major surgical procedures other than arthroscopy of his knee. He does have a history of diabetes and hyperlipidemia. FAMILY HISTORY: Noncontributory. CURRENT MEDICATIONS: Consist of aspirin, Lipitor, insulin, metoprolol, Neurontin, warfarin, fondaparinux injections, and hydrocodone. [facility] [address] [place] [address] CONSULTATION Name: CHAD ROBBINS Room #: 208-P [facility] IN .R.#: [id number] Admission: 02/22/17 Attend Phys: Jac Crocker MD Discharge: Date of : 59 Report #: [id number] ALLERGIES: To HEPARIN and PENICILLIN. SOCIAL HISTORY: . He and his live in [place]. He is a nonsmoker. REVIEW OF SYSTEMS: He has had no history of stroke, asthma, peptic ulcer disease, cancer, or psychiatric illness. PHYSICAL EXAMINATION: GENERAL: Revealed a middle-aged black male, lying in bed, appeared in no distress. VITAL SIGNS: He had a blood pressure of 120/70, pulse was 70. HEENT: He is anicteric. Mucous membranes are moist. NECK: Veins do not appear distended. CHEST: Clear to auscultation. CARDIAC: Regular rate and rhythm, grade 2 systolic ejection murmur. ABDOMEN: Soft. EXTREMITIES: Had 1+ edema. Dorsalis pedis pulse cannot be palpated. SKIN: Cool and dry. NEUROLOGIC: Nonfocal. LABORATORY DATA: His ECG is not available at this time. His workup at [facility], potassium 3.9, creatinine 1.4. Liver function studies are normal. Troponin 0.14. BNP 1190. Hemoglobin 8.8, platelet count 247,000. Chest x-ray, small effusions, atelectasis. X-ray of the abdomen, no acute abnormality. IMPRESSION AND RECOMMENDATIONS: 1. Syncope. Suspect vasovagal. No evidence for the arrhythmias. 2. Recent diagnosis of heparin-induced thrombocytopenia. The patient is now anticoagulated. 3. Recent aortic valve replacement using a tissue valve. 4. Recent coronary artery bypass surgery. 5. Previous implantation of defibrillator. 6. Diabetes. <ELECTRONICALLY SIGNED> By: Raudel Doherty MD, FACC 02/23/17 1228 1446 2229 Raudel Doherty MD, FACC /nt
--- NOTE | ~2017-02-22 | 2DMMODE ---
[facility] [place] [address] 2 D/M-MODE ECHOCARDIOGRAM Name: CHAD ROBBINS Room #: 208-P ADM IN M.R.#: [id number] Admission: 02/22/17 Attend Phys: Florencio Rodriguez Discharge: Date of : 59 Date of Service: 02/24/17 1211 Report #: [id number] THIS REPORT FOR: //name// APPROVED REPORT Study performed: 02/24/2017 09:06:39 EXAM: Comprehensive 2D and color-flow Echocardiogram Patient Location: U Room #: 208 Blood Pressure: 112/69 mmHg HR: 74 bpm Other Information Study Quality: Good Indications Aortic Valve Disease Diabetes Dyspnea Hypertension/HDD Left Ventricle The left ventricle is normal size. There is normal LV segmental wall motion. Mild to moderate concentric left ventricular hypertrophy. Left ventricular systolic function is hyperdynamic. LVEF is 65-70%. Diastolic function was not assessed on this limited study. Right Ventricle The right ventricle is normal size. The right ventricular systolic function is normal. Device lead is present in the right ventricle. Atria The left atrium size is normal. The right atrium size is normal. Aortic Valve There is a bioprosthetic aortic valve prosthesis. Trace to mild aortic regurgitation. No Doppler Mitral Valve The mitral valve is normal in structure. No Doppler [facility] [address] [place] [address] 2 D/M-MODE ECHOCARDIOGRAM Name: CHAD ROBBINS Room #: 208-P ADM IN M.R.#: [id number] Admission: 02/22/17 Attend Phys: Florencio Rodriguez Discharge: Date of : 59 Date of Service: 02/24/17 1211 Report #: [id number] Tricuspid Valve The tricuspid valve is normal in structure. Pulmonic Valve The pulmonary valve is normal in structure. Great Vessels The aortic root is normal in size. IVC is not well visualized. Pericardium There is no pericardial effusion. <Conclusion> Very limited study. Consider full echo/Doppler evaluation LVEF is 65-70%. There is normal LV segmental wall motion. There is a bioprosthetic aortic valve prosthesis. Trace to mild aortic regurgitation. No transaortic Doppler The mitral valve is normal in structure. No Doppler There is no pericardial effusion. <ELECTRONICALLY SIGNED> By: Josue Christian MD, FACC 02/24/171210 10 10 Josue Christian MD, FACC /INF
--- NOTE | ~2017-02-22 | CNG ---
[facility] [place] [address] CYTO-NONGYN REPORT PROCEDURE Name: CHAD WILKERSON Room #: 208-P [facility] IN M.R.#: [id number] Admission: 02/22/17 Date of : 59 Discharge: 02/25/17 Report #: [id number] Path Case #: [id number] CYTOPATHOLOGY REPORT COLLECTION DATE: 02/23/2017 RECEIVED DATE: 02/24/2017 SUBMITTING PHYS: Dr. Haris Graham OTHER PHYS: Dr. Jac Blood MD CLINICAL HISTORY: Patient passed out this morning in his bathroom. SPECIMEN(S) RECEIVED: A.Pleural fluid * * * * * * * * * * * * FINAL DIAGNOSIS: A. Pleural fluid: - No malignant epithelial cells identified. Reactive mesothelial cells and predominantly chronic inflammatory cells are identified. (See comment) COMMENT: Cytomorphological examination of the ThinPrep and cell block are morphologically similar to the patient's previous pleural fluid thoracentesis cytology specimens ([id number] and [id number]). Immunohistochemical stains were performed on the previous two pleural fluids and will not be repeated. Clinical and radiographic correlation is recommended. The current case is co-reviewed with Dr. Bushra Law. (CLW:jessica; d/t: 02/25/2017) PATHOLOGIST: Keyona Selby M.D. REPORT ELECTRONICALLY SIGNED BY: Keyona Selby M.D. DATE/TIME: 02/25/2017 19:33 * * * * * * * * * * * * GROSS PATHOLOGY: A. Pleural fluid: The specimen is submitted unfixed, labeled "Chad Wilkerson". Received by the Cytology Department is 10 mL of cloudy orange fluid. One ThinPrep slide and a cell block were prepared. (clt 02.24.2017) HAND DRILLER(S): Jia Bassett, CT(ASCP), IAC INITIAL CPT CODE(S): A; 16230, 12422 Professional services performed by [email or web address] at [address] [address] CYTO-NONGYN REPORT PROCEDURE Name: CHAD WILKERSON Room #: 208-P DIS IN M.R.#: [id number] Admission: 02/22/17 Date of : 59 Discharge: 02/25/17 Report #: [id number] Path Case #: [id number] , [place] [address] [facility] by [facility] at [address] [place] [address]., [address], [place] [address]. [address], [facility] [address] [place] [address] PHONE: [phone] DIRECTOR: Phill Betts M.D. * * * END OF REPORT * * *
--- NOTE | ~2017-02-22 | D ---
[facility] [place] [address] DISCHARGE SUMMARY Name: CHAD ROBBINS Room #: 208-P [facility] IN M.R.#: [id number] Admission: 02/22/17 Attend Phys: Florencio Rodriguez MD Discharge: 02/25/17 Date of : 59 Report #: [id number] THIS REPORT FOR: //name// CC: Florencio Blood DATE OF SERVICE: 02/25/2017 HISTORY OF PRESENT ILLNESS: The patient is a 61-year-old man who had aortic valve replacement and CABG earlier this month, about 12 days prior to admission. The patient was discharged home in stable condition. He presented to the [facility] on 02/22/2017, for syncope. He was transferred here for further evaluation. HOSPITALIZATION COURSE: The patient was hospitalized at [facility]. He was seen by reformatory attendant as well as by cardiothoracic surgeon. His workup was essentially negative. Based on history, the patient most likely had a vasovagal episode. Cardiac echo was obtained. That was unremarkable. It showed bioprosthetic valve, left ventricular ejection fraction 65-70%. On the chest x-ray, the patient was found to have right pleural effusion. He underwent right-sided thoracentesis. The night before the discharge, the patient developed sudden shortness of breath as well as palpitations. Chest x-ray was obtained, that showed no acute findings. CT scan showed no PE. The patient's symptoms were relieved on Xanax. He remained hemodynamically stable. Currently, the patient's condition is acceptable, as documented in the patient's chart. DISCHARGE DIAGNOSES: 1. Vasovagal syncope, reason for admission. Essentially negative evaluation. No arrhythmias were detected, and the patient has no evidence of acute coronary syndrome. Cardiac echo was also unremarkable, with normal ejection fraction. 2. Status post coronary artery bypass grafting surgery and aortic valve replacement earlier this month. 3. Heparin-induced thrombocytopenia. Developed during previous hospital stay earlier this month. The patient was treated with Coumadin, and he has INR check schedule on 02/28/2017. Current INR is 1.2. 4. Right pleural effusion, status post thoracentesis. 5. Diabetes mellitus type 2, acceptable control. 6. Chronic kidney disease stage 3, stable, creatinine between 1.4-1.6. 7. Hypertension. [address] [address] DISCHARGE SUMMARY Name: CHAD ROBBINS Room #: 208-P [facility] IN M.R.#: [id number] Admission: 02/22/17 Attend Phys: Florencio Rodriguez MD Discharge: 02/25/17 Date of : 59 Report #: [id number] 8. Anxiety, currently treated with p.r.n. Xanax. DISCHARGE MEDICATIONS: Please refer to the medication reconciliation list. DISPOSITION: The patient is discharged home. FOLLOWUP PLAN: 1. Follow up with the reformatory attendant next week as advised. 2. Follow up with the primary care physician as planned. I spent more than 30 minutes to coordinate the patient's discharge from the hospital. <ELECTRONICALLY SIGNED> By: Florencio Rodriguez MD 03/03/17 1250 [id number] Florencio Rodriguez MD /nt
[~2017-02-22 09:36] MED LIST changes: +ARIXTRA7.5 MG/0.6 SUBQ; +BIPAP MISCELL; +COUMADIN 5 MG TA5 M1 PO; +LEVAQUIN 500 M500 M2 PO; +METOPROLOL SUCC50 MG PO; +OXYCODONE HCL 55 MG PO; +PACERONE 200 M200 M1 PO
[2017-02-22] MEDS ORDERED: COUMADIN 3 MG TA3 M1 PO (13:38)
[2017-02-22 15:08] LABS: APTT 21.1 Seconds (24.5-32.8); INR 1.2; PROTIME 12.7 Seconds (9.3-11.4)
[2017-02-22 16:25] VITALS: BP 124/78
[2017-02-22 19:40] VITALS: BP 132/77
[2017-02-23 03:21] LABS: ABSOLUTE NEUTROPHILS 2.5 thou/uL (1.4-8.2); BASOPHILS 1.1 % (0.0-2.0); HEMATOCRIT 24.5 % (42.0-52.0); HEMOGLOBIN 8.1 gm/dL (14.0-18.0); LYMPHOCYTES 29.5 % (24.0-44.0); MCH 27.8 pg (26.0-34.0); MCHC 33.2 g/dL (28.0-37.0); MCV 83.8 fL (80.0-100.0); MONOCYTES 9.8 % (1.0-8.0); PLATELET COUNT 255 thou/uL (150-400); POLYS 58.6 % (36.0-66.0); RBC 2.93 mil/uL (4.50-6.00); WBC 4.3 thou/uL (4.0-11.0)
[2017-02-23 03:22] LABS: MANUAL DIFF NO
[2017-02-23 03:45] LABS: ALBUMIN 2.4 g/dL (3.4-5.0); CALCIUM 8.4 mg/dL (8.5-10.1); CREATININE 1.4 mg/dL (0.7-1.3); POTASSIUM 4.3 mmol/L (3.5-5.1); TOTAL BILIRUBIN 0.5 mg/dL (<0.1-1.0); TOTAL PROTEIN 6.5 g/dL (6.4-8.2)
[2017-02-23 03:50] VITALS: BP 110/64
[2017-02-23 07:30] VITALS: BP 108/61
[2017-02-23 11:40] VITALS: BP 95/56
[2017-02-23 15:20] LABS: BF NUCLEATED CELLS 583; BF RBC 6449
[2017-02-23 15:21] LABS: TOTAL VOLUME 60ML mL
[2017-02-23 15:22] LABS: CLARITY CLOUDY; COLOR YELLOW
[2017-02-23 16:35] LABS: MANUAL DIFF YES
[2017-02-23 16:38] LABS: BF MACROPHAGE 39; BF NEUTROPHILS 3
[2017-02-23 16:39] LABS: BF COMMENTS 2
[2017-02-23 17:40] VITALS: BP 138/75
[2017-02-23 19:29] VITALS: BP 122/70
[2017-02-24] VITALS (7 sets, daily range): BP systolic 99–127; BP diastolic 56–71
[2017-02-24 02:31] LABS: CALCIUM 8.2 mg/dL (8.5-10.1); CREATININE 1.6 mg/dL (0.7-1.3); POTASSIUM 3.6 mmol/L (3.5-5.1)
[2017-02-24 11:12] LABS: BODY FLUID AMYLASE 19 U/L (()); BODY FLUID GLUCOSE 105 mg/dL (()); BODY FLUID LDH 176 IU/L (()); BODY FLUID PROTEIN 3.7 g/dL (())
[2017-02-25 03:15] VITALS: BP 105/58
[2017-02-25 03:56] LABS: INR 1.2; PROTIME 12.9 Seconds (9.3-11.4)
[2017-02-25 08:05] VITALS: BP 101/60
[2017-02-25] MEDS ORDERED: LASIX 40 MG TAB40 M2 PO (09:00)
[2017-02-25] MEDS ORDERED: COUMADIN 3 MG TA3 M1 PO (09:00)
[2017-02-25] MEDS ORDERED: XANAX 0.25 MG0.25 MG PO (09:00)
[2017-02-25 09:46] VITALS: BP 101/60
== END 2017-02-25 12:55 | disposition home or self-care (01) | DRG 312 ==
LOC: 2N 09:36
PROVIDERS: Internal Medicine Cardiovascular Disease; Internal Medicine Endocrinology, Diabetes & Metabolism; Surgery Vascular Surgery
PROC: 0W993ZX Drainage of Right Pleural Cavity, Percutaneous Approach, Diagnostic (ICD-10-PCS; principal; 2017-02-23)
PROC: BB4BZZZ Ultrasonography of Pleura (ICD-10-PCS; principal; 2017-02-23)
DX: R55 Syncope and collapse (principal); J96.90 Respiratory failure, unspecified, unspecified whether with hypoxia or hypercapnia; J90 Pleural effusion, not elsewhere classified; N17.9 Acute kidney failure, unspecified; I12.9 Hypertensive chronic kidney disease with stage 1 through stage 4 chronic kidney disease, or unspecified chronic kidney disease; E78.00 Pure hypercholesterolemia, unspecified; I25.10 Atherosclerotic heart disease of native coronary artery without angina pectoris; D64.9 Anemia, unspecified; E78.5 Hyperlipidemia, unspecified; N18.3 Chronic kidney disease, stage 3 (moderate); E11.22 Type 2 diabetes mellitus with diabetic chronic kidney disease; F41.9 Anxiety disorder, unspecified; D75.82 Heparin induced thrombocytopenia (HIT); Z95.1 Presence of aortocoronary bypass graft; Z95.2 Presence of prosthetic heart valve; Z95.810 Presence of automatic (implantable) cardiac defibrillator; Z88.0 Allergy status to penicillin; Z88.8 Allergy status to other drugs, medicaments and biological substances; Z79.4 Long term (current) use of insulin; Z86.74 Personal history of sudden cardiac arrest; Z86.73 Personal history of transient ischemic attack (TIA), and cerebral infarction without residual deficits; Z82.49 Family history of ischemic heart disease and other diseases of the circulatory system; Z83.3 Family history of diabetes mellitus
CPT/HCPCS: 10081